=== PATIENT | female | born 1955 | race Caucasian/White ===

== ENCOUNTER → 2020-05-09 10:53 | Outpatient (CLI) | payer MEDICARE, OTHER, SELFPAY ==
--- NOTE | ~2020-05-09 | XR_ITS ---
EXAMINATION: XR lumbar spine min 4V EXAM DATE: 05/09/2020 11:59 INDICATION: Low back pain. TECHNIQUE: Lumber spine frontal, lateral, bilateral oblique projections. Coned down frontal and lat eral L5-S1 lumbar projections for interpretation. There is no prior study for comparison. FINDINGS: There is mild lumbar levoscoliosis. There is moderate loss of the L5-S1 disc height. Mild d isc disease at the other lumbar levels. There is moderate lumbar facet arthropathy. The vertebral bod ies are aligned in the AP dimension. Sacrum, sacroiliac joints, sacral arcuate lines are intact. P araspinal soft tissue is unremarkable. There are no acute fractures identified. IMPRESSION: Moderate facet arthropathy and L5-S1 disc disease. Reviewed, dictated and finalized at location A. ARE CASE WORKER
--- NOTE | ~2020-05-09 | DEXA_ITS ---
Bone Density Report Name: Hayley Arora Age: 65 Sex: Female Ethnicity: White Date of : 1955 Indication: monitoring treatment; hysterectomy; postmenopausal Referring Provider: KATY GONCALVES Study: Bone densitometry was performed. Exam Date: May 09, 2020 Accession number: [id number] Bone Density: Region BMD T-score Z-score Classification AP Spine (L1, L2) 1.081 0.9 2.6 Normal Femoral Neck (Left) 0.921 0.6 2.2 Normal Total Hip (Left) 1.034 0.8 2.0 Normal Femoral Neck (Right) 0.824 -0.2 1.3 Normal Total Hip (Right) 0.989 0.4 1.6 Normal Total Hip Mean 1.012 0.6 1.8 Normal World Health Organization criteria for BMD impression classify patients as: Normal (T-score at or above -1.0), Osteopenia (T-score between -1.0 and -2.5), or Osteoporosis (T-score at or below -2.5). 10-year Fracture Risk: FRAX not reported because: All T-scores for Spine Total, Hip Total, Femoral Neck at or above -1.0 Treated for osteoporosis Previous Exams: Region Exam Age BMD T-score BMD Change BMD Change Date g/cm2 vs Baseline vs Previous AP Spine(L1, L2) 05/09/2020 65 1.081 0.9 0.053* 0.053* 09/04/2004 49 1.027 0.4 Total Hip(Left) 05/09/2020 65 1.034 0.8 -0.084* -0.084* 09/04/2004 49 1.119 1.4 Total Hip(Right) 05/09/2020 65 0.989 0.4 0.006 0.006 09/04/2004 49 0.983 0.3 *Denotes significance at 95% confidence level, LSC for AP Spine = 0.022 g/cm2, LSC for Total Hip = 0.027 g/cm2 Clinical Information Provided by Patient: Has 3 or more alcoholic drinks per day Is being treated for osteoporosis Has used the following medications: HRT (i.e. estrogen/hormone therapy) Has the following medical conditions: Hysterectomy Patient maximum height was 64.0 Menopause Age: 35 No regular weight bearing exercise Drinks caffeinated beverages Onset of menses at age 10 Number of children 2 Impression: The patient has normal bone mass. The patient has risk factors, including: excessive alcohol use. The BMD for the Total Hip(Left) decreased, changing by -0.084 since the last DXA exam. Discussion: SIGNIFICANT BONE LOSS OBSERVED. Adherence to therapy (including calcium and vitamin D intake) should be assessed. If compliance is not a factor, review management and exclusion of secondary causes of bone loss. It is important to ask patients whether they are taking their medications and to encourage cont
== END ==
PROVIDERS: PCP Family Medicine; Visit Provider Family Medicine
DX: Z78.0 Asymptomatic menopausal state (principal); M47.817 Spondylosis without myelopathy or radiculopathy, lumbosacral region; M51.87 Other intervertebral disc disorders, lumbosacral region
CPT/HCPCS: 72110; 77080

== ENCOUNTER 2020-05-21 12:51 | Outpatient (RCR) | payer MEDICARE, OTHER, SELFPAY ==
--- NOTE | 2020-06-04 11:12 | PTOPEVAL ---
Thank you for referring Hayley Arora to [facility].? The patient is scheduled to be seen for therapy? __3__x/week for 12 visits. Please review, sign, date and return this plan of care LAURO. I agree with and certify that the following plan of care is medically necessary. Referring Physician Date Admitting Provider: Attending Provider: Elijah Holloway MD Referring Provider: *PT Outpatient Evaluation Start: 05/21/20 13:01 Freq: Status: Active Protocol: Document 05/21/20 13:01 ANDREW (Rec: 05/21/20 14:07 ANDREW [id number]) Therapy Assessment Status Assessment Status Assessment Status Evaluation Evaluation Information Problem Diagnosis low back pain Onset 05/14/20 Subjective Information Pt. reports that she has Query Text:As Reported By Patient/ noticed a recent gradual onset Family of pain. She describes pain in the left low back and radiates down into the buttock and hamstring. She will get occassional pain radiating into the left calf. She reports that pain will make it difficult to get out of bed in the morning. She reports that once she gets moving she will feel better. Pt. has undergone xray which revealed disc wear at L5-S1. Pt. reports her goal for therpay is to decrease her pain. Prior Level of Function Activity Level (Last 3 Months) Occupation retired Hand Dominance Right Activity of Daily Living Ability Independent Indoor/Home Mobility Independent Community Mobility Independent Stairs Ability Independent Functional Cognition (Planning, Shopping Independent , Taking Medications) Cooking Yes Cleaning Yes Laundry Yes Shopping Yes Driving Yes Pain Assessment Timing of Pain Assessment Timing of Pain Assessment Pre-Treatment Pain Scale Pain Scale Used Numeric (1 - 10) Self Report Pain Assessment Lower Back Reported Pain Level 0 Pain Frequency Intermittent Lowest Pain Intensity 0 Greatest Pain Intensity 5 Pain Aggravating Factors Exercise/Activity,Lifting, Weight Bearing/Standing Pain Score Pain Score 0: Self Re
== END 2020-06-28 09:20 | disposition home or self-care (01) ==
LOC: CHSPT 12:51
PROVIDERS: PCP Family Medicine; Visit Provider Family Medicine
DX: M54.16 Radiculopathy, lumbar region (principal)
CPT/HCPCS: 97110; 97161; 97530

== ENCOUNTER 2020-06-07 12:31 | Outpatient (CLI) | payer MEDICARE, OTHER, SELFPAY ==
--- NOTE | ~2020-06-07 | XR_ITS ---
XR hip LT min 2V DATE: 06/07/2020 12:49 INDICATION: Left hip pain for years. Limited range of motion. TECHNIQUE: AP and lateral views of left hip COMPARISON: None FINDINGS: There is severe left hip joint space narrowing and prominent degenerative spurring, consist ent with severe left hip osteoarthritis. No fracture or dislocation, avascular necrosis or bone destruction is evident. The pubic symphysis and left sacroiliac joint are intact. There is prominent degenerative disc diseas e at L5-S1. IMPRESSION: Severe left hip osteoarthritis Degenerative disc disease at L5-S1 Reviewed, dictated and finalized at location B. L FRONT DESK AGENT
== END 2020-06-07 12:32 | disposition home or self-care (01) ==
PROVIDERS: PCP Family Medicine; Visit Provider Family Medicine
DX: M25.552 Pain in left hip (principal); M16.12 Unilateral primary osteoarthritis, left hip
CPT/HCPCS: 73502

== ENCOUNTER 2020-08-21 07:58 | Outpatient (CLI) | payer MEDICARE, OTHER, SELFPAY ==
--- NOTE | 2020-08-21 08:46 | ECG_ITS ---
Measurements Intervals [place] Rate: 72 P: 78 IN: 159 QRS: 19 QRSD: 86 T: -25 QT: 399 QTc: 438 Interpretive Statements SINUS RHYTHM POSSIBLE LEFT ATRIAL ENLARGEMENT INCOMPLETE RIGHT BUNDLE BRANCH BLOCK DELAYED PRECORDIAL R/S TRANSITION BORDERLINE ST-T WAVE ABNORMALITY- INF/LAT LEADS BASELINE ARTIFACT- I, II, III, AVR, AVL, AVF, V3 BORDERLINE ECG Electronically Signed On 08-21-2020 9:03:23 CDT by Adonis Currie D.O.
[2020-08-21 09:09] LABS: Basophils Absolute Auto 0.1 K/mm3 (0.0-0.1); Eosinophils Absolute Auto 0.3 K/mm3 (0-0.3); Eosinophils Percent Auto 4.1 % (0-4.4); Hematocrit 36.8 % (37.0-47.0); Hemoglobin 12.6 g/dL (12.0-15.0); Immature Granulocyte Absolute 0.02 K/mm3 (0.00-0.031); Immature Granulocyte Percent A 0.3 % (0-0.5); Lymphocytes Absolute Auto 1.57 K/mm3 (0.9-3.2); Mean Corpuscular HGB Conc 34.2 g/dl (32-36); Mean Corpuscular Hemoglobin 32.8 pg (26-34); Mean Corpuscular Volume 95.8 fl (80-100); Mean Platelet Volume 10.3 fl (7.4-10.4); Monocytes Absolute Auto 0.5 K/mm3 (0.1-0.6); Monocytes Percent Auto 7.6 % (2.6-8.5); Neutrophils Absolute Auto 3.7 K/mm3 (1.3-6.7); Platelet Count Result 186 k/mm3 (150-375); Red Blood Count 3.84 M/mm3 (4.2-5.4); Red Cell Distribution Width 12.4 % (11.5-14.5); White Blood Count 6.1 K/mm3 (4.5-10.0)
[2020-08-21 09:19] LABS: INR 0.9; Prothrombin Time 12.4 Seconds (11.1-14.7)
[2020-08-21 09:20] LABS: Partial Thromboplastin Time 26.7 SECONDS (22.3-36.8)
[2020-08-21 09:21] LABS: Urine Cotinine NEGATIVE
[2020-08-21 09:23] LABS: Add Urine Microscopic? YES; Appearance Urine Cloudy (Clear); Bilirubin Urine Negative (Negative); Blood Urine Negative (Negative); Color Urine Yellow (Yellow); Glucose Urine UA Negative (Negative); Ketones Urine Negative (Negative); Leukocyte Esterase Ur Negative LEU/UL (Negative); Mucus Urine Few /lpf; Nitrate Urine Negative (Negative); Protein Urine 2+ mg/dL (Negative); Specific Grav Ur 1.016 (1.001-1.035); Squamous Epithelial Cell Urine Many /hpf (Few); Urobilinogen Urine Negative mg/dL (<2.0); WBC Urine 0-3 /hpf
[2020-08-21 09:23] LABS: Albumin Level 4.9 g/dL (3.5-5.1); Blood Urea Nitrogen 11 mg/dL (7-17); Calcium 10.4 mg/dL (8.4-10.2); Carbon Dioxide > 40 mmol/L (22-30); Chloride 94 mmol/L (98-107); Estimated Glomerular Filt Rate > 60; Glucose 125 mg/dL (65-105); Sodium 140 mmol/L (137-145)
== END 2020-08-21 07:59 | disposition home or self-care (01) ==
LOC: ANHSURGERY 08:02
PROVIDERS: PCP Family Medicine; Visit Provider Orthopaedic Surgery
DX: Z01.818 Encounter for other preprocedural examination (principal); M16.12 Unilateral primary osteoarthritis, left hip; I45.10 Unspecified right bundle-branch block; Z51.81 Encounter for therapeutic drug level monitoring; Z79.899 Other long term (current) drug therapy
CPT/HCPCS: 80048; 80307; 81001; 82040; 83036; 85025; 85610; 85730; 87081; 93005

== ENCOUNTER → 2020-08-31 00:46 | Outpatient (CLI) | payer MEDICARE, OTHER, SELFPAY ==
[2020-08-31 23:32] LABS: SARS-CoV-2 RNA PCR Negative
== END ==
PROVIDERS: PCP Family Medicine; Visit Provider Orthopaedic Surgery
DX: Z01.812 Encounter for preprocedural laboratory examination (principal); Z20.822 Contact with and (suspected) exposure to COVID-19
CPT/HCPCS: C9803; U0003; U0005

== ENCOUNTER 2020-09-05 18:51 | Observation (INO) | payer MEDICARE, OTHER, SELFPAY ==
[2020-08-21 08:06] VITALS: BMI 22.1
[2020-08-21 08:43] VITALS: BP 141/76; PULSE 91; RESP 16; TEMP 37.3; O2SAT 100
--- NOTE | 2020-09-03 13:16 | WPDANESEPPF ---
Anes - Initial Pre Proc Eval Procedure: Operation Date: 09/04/20 07:30 Proposed Procedures p Left Total Hip Arthroplasty - Marcello Ellis MD Date/Time: 09/03/20 13:16 Surgeon: Marcello Ellis MD Pre Op Diagnosis: Left Hip DJD Patient Data Age: 65 Gender: F Height: 5 ft 4 in Weight: 58.6 kg Last Vital Signs Temp 99.1 F 08/21/20 08:43 Pulse 91 08/21/20 08:43 Resp 16 08/21/20 08:43 BP 141/76 H 08/21/20 08:43 Pulse Ox 100 08/21/20 08:43 Allergies Allergy/AdvReac Type Severity Reaction Status Date / Time No Known Allergies Allergy Verified 09/04/20 06:10 Home Medications Medication Instructions Recorded Confirmed Type calcium carbonate 600 mg calcium 600 mg PO DAILY 07/02/20 09/04/20 History (1,500 mg) tablet cholecalciferol (vitamin D3) 100 400 mcg PO DAILY cap 07/02/20 09/04/20 History mcg (4,000 unit) capsule estradiol 0.5 mg tablet 0.5 mg PO DAILY 07/02/20 09/04/20 History acetaminophen 650 mg PO PRN PRN 08/21/20 09/04/20 History amlodipine 10 mg PO HS 08/21/20 09/04/20 History losartan 100 mg PO HS 08/21/20 09/04/20 History metoprolol succinate 50 mg PO HS 08/21/20 09/04/20 History potassium chloride 10 meq PO DAILY 08/21/20 09/04/20 History chlorhexidine gluconate 4 % 1 applic TOPICAL ONCE #237 ml 08/26/20 09/04/20 Rx topical liquid Patient hx anesthesia problems: none Family hx anesthesia problems: none PMFSH Past Medical History Medical History (Updated 09/03/20 @ 13:16 by Mauro Blood MD) Degenerative joint disease of left hip Hypertension Surgical History Surgical History H/O: hysterectomy Social History Social History Smoking packs per day: 0.75 Smoking cigarettes per day: 15.0 Years smoked: 15 Smoking pack-years: 11.25 Smoking status: Former smoker Tobacco type: cigarettes Second hand tobacco smoke exposure: No Smoking end date: 04/15/00 Additional smoking assessment comments: DENIES ANY FORM OF TOBACCO USE Alcohol intake: current Drinks per week: 56 Alcohol use details: BEER Substance use: never Substance use type: marijuana Last use: 08/20/20 Living arrangements: with family Gender identity (if verbalized by the patient): Female Spiritual care concerns: No Anes - Eval Final PreProcedure Day of Procedure 09/03/20 13:16 Patient weight: normal Heart: regular rate and rhythm Lungs: clear to auscultation Airway: Mallampati scale class II Neurological: alert and oriented Last oral intake: >/= 8 hours ASA classification: III Emergent: no Anesthetic plan: proceed Anesthesia type and monitoring: general ETT and standard monitoring Informed Consent: The patient's anesthetic plan and its attendant risks and benefits were discussed with the patient/family/POA. Questions were solicited and answers provided to the satisfaction of the patient/family/POA.
[2020-09-04] VITALS (14 sets, daily range): BP systolic 113–145; BP diastolic 57–75; PULSE 63–84; RESP 12–21; TEMP 35.9–37.1; O2SAT 100
[2020-09-04] MEDS: ACETAMINOPHEN 500 MG TABLET 1000 MG PO ×2 (06:33→17:35)
[2020-09-04] MEDS: LACTATED RINGERS 1,000 ML 30 ML IV CONT ×3 (06:40→10:30)
[2020-09-04] MEDS: TRANEXAMIC ACID 1,000MG/ISO100 1,000 MG/100 ML BAG 200 MG IVPB (06:49)
[2020-09-04 07:12] LABS: Glucose Point of Care 100 mg/dl (65-105)
--- NOTE | 2020-09-04 07:22 | WPDHPUPDATE1 ---
History and Physical Update Update Date/Time: 09/04/20 07:22 History and Physical has been reviewed, including an updated exam of the patient. There are NO changes in the patient's condition. Risks, benefits, and alternatives have been discussed and questions answered. Patient agrees to proceed with procedure.
[2020-09-04] MEDS: ceFAZolin 2 GM/D5W 50 ML 2 GM/50 ML BAG IVPB ×2 (07:35→16:41)
--- NOTE | 2020-09-04 07:37 | SUR.PREOP ---
07-SUMMONED TO ROOM BY , STATES PT IS OUT . UPON ARRIVAL TO ROOM, PT NOT RESPONDING, BREATHING ORALLY WITH SLOWED EXHALATION, RADIAL PULSE STRONG, PT DIAPHORETIC. ADDITIONAL STAFF SUMMONED INCUDING DR. MIKE AND RESPONDED. IVF INCREASED TO WIDE OPEN. WITHIN APPROXIMATELY 1 MINUTE OR LESS, PT RESPONSIVE, STATES PASSED OUT AND FEELS FINE NOW. PT. EXAMINED BY DR. MIKE. [id number]. SULLIVAN HERE AND AWARE OF ABOVE, WILL PROCEED. DR. BLUE AND ANGEL, RN CHEMICAL ENGRAVER AWARE OF ABOVE.
[2020-09-04] MEDS: TRANEXAMIC ACID 1,000 MG/10 ML AMPUL 1000 MG IV PUSH (09:27)
--- NOTE | 2020-09-04 09:39 | PM.PROC ---
Procedure Note - Detailed Date of procedure: 09/04/20 Pre-op diagnosis: Left Hip DJD LEFT HIP DJD Post-op diagnosis: same Procedure performed: LEFT ELVIRA Description of procedure: THE PATIENT WAS TAKEN TO THE OPERATING ROOM IN STABLE CONDITION. SHE WAS PLACED IN THE LATERAL DECUBITUS AND THE LEFT LOWER EXTREMITY WAS PREPPED AND DRAPED IN THE STERILE FASHION. INCISION WAS MADE IN THE POSTERIOR LATERAL SIDE OF THE HIP, DOWN TO THE FASCIA LAYER. THE FASCIA WAS INCISED. THE HIP WAS EXPOSED. THE SHORT EXTERNAL ROTATORS WERE EXPOSED AND THE SCIATIC NERVE WAS VISUALIZED. THE CAPSULE WAS INCISED EXPOSING THE HIP JOINT. THE HIP WAS DISLOCATED. AN OSTEOTOMY WAS MADE TO THE FEMORAL NECK ABOUT 1 CM PROXIMAL TO THE LESSER TROCHANTER. THE ACETABULUM WAS EXPOSED. THERE WAS SEVERE DJD SEEN. THE ACETABULUM WAS REAMED TO 49 MM. A 49 MM TRIAL WAS PLACED IN 35 DEG OF ABDUCTION AND ANTEVERSION WAS IN ALIGNMENT WITH THE TRANS ACETABULAR LIGAMENT. THE FIT WAS EXCELLENT. THE TRIAL WAS REMOVED. A 50 MM BIOMET G7 COMPONENT WAS THEN TAPPED IN TO PLACE IN 35 DEG OF ABDUCTION AND ANTEVERSION IN ALIGNMENT WITH THE TRANSVERSE ACETABULAR LIGAMENT. THE ACETABULAR LINER WAS PLACED AND CHECKED FOR STABILITY. NEXT THE FEMUR WAS PREPARED WITH INITIAL CANAL FINDER THEN SEQUENTIAL BROACHING TILL A 7 BROACH FIT WELL IN 15 OF ANTE VERSION. A 0 HIGH OFFSET NECK WITH 36 MM HEAD TRIAL WAS PLACED. THE RUPERTO TEST WAS EXCELLENT AND THE STABILITY IN FLEXION AND ROTATION WAS EXCELLENT. LEG LENGTHS WERE GROSSLY EQUAL. TRIALS WERE REMOVED. A BIOMET TAPERLOC 7 STEM WAS PLACED WITH A HIGH OFFSET NECK. THE FIT WAS EXCELLENT IN 15 DEG OF ANTEVERSION. A 0 CERAMIC 36 MM FEMORAL HEAD WAS PLACED. THE HIP WAS TRIALED AND THE STABILITY WAS EXCELLENT WERE THE LEG LENGTHS AND THE SCHUK TEST. THE WOUND WAS IRRIGATED WITH STERILE BETADINE AND WATER FOR 3 MIN. THEN WASHED AGAIN. THE CAPSULE AND THE EXTERNAL ROTATORS WERE APPROXIMATED WITH NUMBER 1 VICRYL. THE FASCIA WITH No 2 QUIL AND THE SUB CUTANEOUS LAYER WITH 2-0 ABSORBABLE SUTURE WITH A RUNNING 3-0 SUBCUTICULAR LAYER WELL. DERMABOND WAS PLACED AND STERILE DRESSING WAS APPLIED. PATIENT WAS PLACED BACK ON TO THE SUPINE POSITION AND WAS EXTUBATED. Anesthesia: GETA Surgeon: Marcello Ellis MD Estimated blood loss (mL): 150 Drains: No Complications: No immediate complications Condition: stable Disposition: PACU
[2020-09-04] MEDS: fentaNYL CITRATE INJ (*CRX) 100 MCG/2 ML VIAL 25 MCG IV PUSH ×6 (10:10→10:55)
--- NOTE | 2020-09-04 10:58 | SUR.PHASEI ---
1050 sbar faxed floor notified
--- NOTE | 2020-09-04 11:15 | ADMGEN ---
This patient, Hayley Arora, was admitted to Medical Room 258-01. Patient/family oriented to hospital policies and general routines including ID bracelet, bed and alarms, visiting hours, pain management, procedures, bathroom and other care routines, personal items, smoking policy, room service/diet, and visiting hours. Information on how to activate the Rapid Response Team has been discussed. Patient/Family are encouraged to report perceived risks to care and to ask questions if they do not understand what they are told or what they should do.
[2020-09-04 11:50] LABS: Hematocrit 32.5 % (37.0-47.0); Hemoglobin 11.3 g/dL (12.0-15.0)
[2020-09-04] MEDS: amLODIPine BESYLATE 5 MG TABLET 10 MG PO (20:16)
[2020-09-04] MEDS: LOSARTAN POTASSIUM 100 MG TABLET PO (20:17)
[2020-09-04] MEDS: FAMOTIDINE 20 MG TABLET PO (20:17)
[2020-09-04] MEDS: METOPROLOL SUCCINATE EXT REL 50 MG TABCR PO (20:17)
--- NOTE | ~2020-09-05 | XR_ITS ---
XR hip LT 1V DATE: 09/04/2020 10:50 INDICATION: Left total hip TECHNIQUE: Postoperative AP view of left hip COMPARISON: 08/26/2020 left hip FINDINGS: Status post left total hip arthroplasty. Mild expected postoperative subcutaneous emphysema . No fracture or dislocation. Normal alignment at the pubic symphysis and sacroiliac joints. Diffuse osteopenia. IMPRESSION: Postoperative examination following left total hip arthroplasty Reviewed, dictated and finalized at location B.
[2020-09-05] MEDS: ceFAZolin 2 GM/D5W 50 ML 2 GM/50 ML BAG IVPB ×2 (00:20→06:39)
[2020-09-05 00:56] VITALS: BP 141/79; PULSE 85; RESP 20; TEMP 36.4; O2SAT 98
[2020-09-05] MEDS: MORPHINE SULFATE (*CRX) 4 MG/ML INJ 3 MG IV PUSH (01:00)
[2020-09-05 05:42] LABS: Basophils Percent Auto 0.3 % (0.2-1.2); Hematocrit 30.6 % (37.0-47.0); Hemoglobin 10.6 g/dL (12.0-15.0); Immature Granulocyte Absolute 0.02 K/mm3 (0.00-0.031); Immature Granulocyte Percent A 0.2 % (0-0.5); Lymphocytes Absolute Auto 1.32 K/mm3 (0.9-3.2); Lymphocytes Percent Auto 15.4 % (18.3-44.2); Mean Corpuscular HGB Conc 34.6 g/dl (32-36); Mean Corpuscular Hemoglobin 32.9 pg (26-34); Mean Platelet Volume 10.6 fl (7.4-10.4); Monocytes Absolute Auto 0.8 K/mm3 (0.1-0.6); Monocytes Percent Auto 9.5 % (2.6-8.5); Neutrophils Absolute Auto 6.4 K/mm3 (1.3-6.7); Neutrophils Percent Auto 74.6 % (45.5-73.1); Platelet Count Result 156 k/mm3 (150-375); Red Blood Count 3.22 M/mm3 (4.2-5.4); White Blood Count 8.6 K/mm3 (4.5-10.0)
[2020-09-05 06:00] VITALS: BP 147/82; PULSE 76; RESP 21; TEMP 36.2; O2SAT 100
[2020-09-05 06:03] LABS: Blood Urea Nitrogen 7 mg/dL (7-17); Carbon Dioxide > 40 mmol/L (22-30); Chloride 94 mmol/L (98-107); Estimated CRCL calculation 69 ml/min; Estimated Glomerular Filt Rate > 60; Glucose 127 mg/dL (65-105); Potassium 2.5 mmol/L (3.4-5.0); Sodium 134 mmol/L (137-145)
[2020-09-05] MEDS: HYDROcodone/acetaminophen (*CRX) 7.5-325 MG TABLET 1 TAB PO ×2 (06:28→12:00)
[2020-09-05] MEDS: POTASSIUM CHLORIDE 10 MEQ TABLET.ER PO (06:35)
[2020-09-05] MEDS: FAMOTIDINE 20 MG TABLET PO ×2 (08:17→20:14)
[2020-09-05] MEDS: CELECOXIB 200 MG CAPSULE PO (08:17)
[2020-09-05] MEDS: CALCIUM CARBONATE (OSCAL) 500 MG TABLET PO (08:17)
[2020-09-05] MEDS: ASPIRIN 325 MG ENTERIC TABLET 650 MG PO (08:17)
[2020-09-05] MEDS: DOCUSATE SODIUM 100 MG CAPSULE PO ×2 (08:17→17:28)
--- NOTE | 2020-09-05 09:05 | PM.PNORT ---
Progress Note: A&P Assessment and Plan (1) S/P total hip arthroplasty: Qualifiers: Laterality: left Qualified Code(s): Z96.642 - Presence of left artificial hip joint Code(s): Z96.649 - Presence of unspecified artificial hip joint Status: Acute Assessment and Plan: POD #1: LEFT ELVIRA Continue PT/OT. WBAT. Walker. HIGH FALL RISK. Continue pain control. Ice lateral hip. Incentive spirometry. SCDs. DVT prophylaxis. Monitor dressing. Change prior to discharge. Dispo: Home with Home Health pending progress with PT/OT and medical clearance. (2) Hypokalemia: Code(s): E87.6 - Hypokalemia Status: Acute Assessment and Plan: Potassium chloride started. Medicine consulted by Dr. Ellis. Subjective Subjective Date/Time Seen: 09/05/20 09:05 POD #1: Left ELVIRA No new complaints. Doing well this AM. Awaiting PT. Pain well controlled. Review of Systems Constitutional: Constitutional: Denies chills, Denies fatigue, Denies fever(s), Denies night sweats and Denies weakness Cardiovascular: Cardiovascular: Denies chest pain, Denies lightheadedness, Denies palpitations and Denies dyspnea Respiratory: Respiratory: Denies cough, Denies dyspnea and Denies wheezing Gastrointestinal: Gastrointestinal: Denies abdominal pain, Denies diarrhea, Denies nausea and Denies vomiting Musculoskeletal: Musculoskeletal: Reports arthralgias (left hip ), Reports joint swelling (left hip ) and Denies numbness Neurologic: Denies numbness and Denies weakness Endocrine: Endocrine: Denies fatigue and Denies palpitations Allergic/Immunologic: Allergic/Immunologic: Denies wheezing Exam Const: General: comfortable and no acute distress Resp: Effort & Inspection: normal respiratory effort Cardio: Rate: regular rate Rhythm: regular rhythm GI: Inspection: non-distended Skin: General skin exam: normal color Wounds: wounds noted (incision left hip C/D/I ) Extrem: Right lower extremity: normal to inspection, full ROM and normal capillary refill Left lower extremity: hip/thigh Details: tenderness Location: of the hip Location: laterally and anteriorly, swelling (thigh soft ) Location: of the hip (lateral. ), abnormal ROM (limitations with internal/external rotation and flexion/extension due to recent surgical intervention ) and other (incision lateral hip c/d/i. ), knee Details: normal to inspection and normal ROM; no tenderness and no swelling, lower leg (Negative Deepika's Sign ) Details: no edema, ankle (+ankle dorsiflexion/plantarflexion ) Details: normal to inspection, no edema and normal ROM; no tenderness, no swelling and no warmth and foot Details: normal capillary refill, toes with normal ROM, vascular exam Details: dorsalis pedis pulse present and motor-sensory exam light-touch normal in all toes; no tenderness, no ecchymosis and no crepitus Psych: Mental Status: mental status grossly normal Affect: normal affect Objective Data Vital Signs Vital Signs: Vital Signs - 24 hr 09/04/20 10:00 09/04/20 10:15 09/04/20 10:30 Temperature 36.6 C Pulse Rate 76 76 72 Respiratory Rate 12 16 15 Blood Pressure 113/66 128/71 140/75 Pulse Oximetry 100 100 100 09/04/20 10:45 09/04/20 11:00 09/04/20 11:11 Temperature 36.1 C L Pulse Rate 78 79 78 Respiratory Rate 20 20 16 Blood Pressure 136/72 131/70 145/74 H Pulse Oximetry 100 100 100 09/04/20 11:26 09/04/20 11:56 09/04/20 12:56 Temperature 36.0 C L 36.0 C L 35.9 C L Pulse Rate 63 67 72 Respiratory Rate 16 16 16 Blood Pressure 136/69 134/68 130/64 Pulse Oximetry 100 100 100 09/04/20 14:00 09/04/20 20:00 09/04/20 20:17 Temperature 36.1 C L Pulse Rate 74 84 84 Respiratory Rate 16 16 Blood Pressure 121/57 L Pulse Oximetry 100 100 09/04/20 22:00 09/05/20 00:56 09/05/20 06:00 Temperature 37.1 C 36.4 C 36.2 C L Pulse Rate 82 85 76 Respiratory Rate 21 H 20 21 H Blood Pressure 116/63 141/79 H 147/82 H Pulse Oximetry 100
[2020-09-05 10:00] VITALS: BP 114/65; PULSE 84; RESP 16; TEMP 36.6; O2SAT 95
[2020-09-05] MEDS: POTASSIUM CHLORIDE 20 MEQ PACKET (FOR LIQUID) 40 MEQ PO (11:59)
[2020-09-05 12:08] LABS: Magnesium 1.5 mg/dL (1.6-2.3)
--- NOTE | 2020-09-05 13:13 | PM.IMCN ---
Assessment and Plan Assessment and plan (1) S/P total hip arthroplasty: Qualifiers: Laterality: left Qualified Code(s): Z96.642 - Presence of left artificial hip joint Code(s): Z96.649 - Presence of unspecified artificial hip joint Status: Acute Assessment and Plan: Postop care per Dr. Ellis. The patient is anticipating discharge. She appears to be doing fairly well and is dressed and stated that she wants to go home today. Postop care per Dr. Ellis. DVT prophylaxis per Dr. Ellis. PT OT per Dr. Ellis. Pain management per Dr. Ellis. (2) Hypomagnesemia: Code(s): E83.42 - Hypomagnesemia Status: Acute Assessment and Plan: Patient's magnesium was supplemented today. (3) Hypokalemia: Code(s): E87.6 - Hypokalemia Status: Acute Assessment and Plan: Patient stated that her potassium is always chronically low. She is currently on oral potassium. She is not on any diuretics. Today her potassium was 2.5. Her previous potassium was 3.0. I will recheck her potassium level again in a couple hours to see if it is at her baseline. (4) Hypertension: Code(s): I10 - Essential (primary) hypertension Status: Acute Assessment and Plan: Continue with her home medication of losartan and metoprolol if blood pressure allows. HPI Data of Consult Consult date: 09/05/20 Requesting Physician: Marcello Ellis MD Primary Care Provider: Elijah Holloway MD Consult Narrative Narrative: Hayley Arora is a 65 year old female who has a history of degenerative disc disease in her back. The patient was seeing her primary care doctor for lower back pain and discovered that she was also having problems with her left hip. She was diagnosed with severe osteoarthritis to that left hip. She tells me that she continue to be active and thought that her pain was coming from her back. She had been going to physical therapy for lower back pain when she discovered that she was having problems with her left hip. The patient was having difficulty going up stairs. The patient elected to undergo a left total hip replacement yesterday per Dr. Ellis. Other than the site being slightly swollen she does not have any complaints today. Her potassium was found to be 2.5 which was replaced today by the hospitalist group. The patient is anticipating going home soon. She stated that she typically takes a potassium supplement and that it is typically low. Prior to today her potassium was 3.0. The hospitalist group has been asked to consult on this pleasant patient due to low potassium. Date of consult is 09/05/2020. The patient is listed as a regular same-day surgery. Review of Systems Review of Systems: All systems reviewed & are unremarkable except as noted in HPI and below Constitutional: Constitutional: Reports as per HPI and Reports no additional constitutional complaints Eyes: Eyes: Reports as per HPI and Reports no additional eye complaints ENT: Reports system reviewed and no additional complaints, except as documented and Reports Normal hearing present Cardiovascular: Cardiovascular: Reports no additional cardiovascular complaints Respiratory: Respiratory: Reports no additional respiratory complaints and Reports no additional respiratory complaints Gastrointestinal: Gastrointestinal: Reports as per HPI and Reports no additional gastrointestinal complaints Musculoskeletal: Musculoskeletal: Reports no additional musculoskeletal complaints Integumentary/Breasts: Skin/Breast: Reports system reviewed and no additional complaints, except as docu and Reports as per HPI Neurologic: Reports system reviewed and no additional complaints, except as documented, Reports as per HPI and Reports Normal hearing present Psychiatric: Psychiatric: Reports no additional psychiatric complaints and Reports as per HPI Endocrine: Endocrine: Reports no additional endocrine complaints
--- NOTE | 2020-09-05 13:35 | WPDANESPN ---
Anes - Prog Note Post-Op Date/Time: 09/05/20 13:35 Cardiovascular status: normal Respiratory status: normal Airway patency: baseline Mental status: baseline Post-Op hydration status: normal Vital Signs: Last Vital Signs Temp 36.6 C 09/05/20 10:00 Pulse 84 09/05/20 10:00 Resp 16 09/05/20 10:00 BP 114/65 09/05/20 10:00 Pulse Ox 95 09/05/20 10:00 Pain Score (VAS): 0 I/O: Intake & Output 09/04/20 09/05/20 09/05/20 23:59 07:59 15:59 Intake Total 50 850 480 Output Total 1200 1200 Balance -1150 -350 480 Laboratory Tests 09/05/20 05:20 09/05/20 05:20 09/05/20 09/05/20 09/05/20 05:20 05:20 11:38 WBC 8.6 RBC 3.22 L Hgb 10.6 L Hct 30.6 L MCV 95.0 MCH 32.9 MCHC 34.6 RDW 12.0 Plt Count 156 MPV 10.6 H Immature Gran % (Auto) 0.2 Neut % (Auto) 74.6 H Lymph % (Auto) 15.4 L [place] % (Auto) 9.5 H Eos % (Auto) 0.0 Baso % (Auto) 0.3 Lymph # (Auto) 1.32 [place] # (Auto) 0.8 H Eos # (Auto) 0.0 Baso # (Auto) 0.0 Abs Immat Gran (auto) 0.02 Absolute Neuts (auto) 6.4 Absolute Nucleated RBC 0.0 Nucleated RBC % 0.0 Sodium 134 L Potassium 2.5 L* Chloride 94 L Carbon Dioxide > 40 H Anion Gap BUN 7 Creatinine 0.60 L Estim Creat Clear Calc 69 Estimated GFR > 60 Glucose 127 H Calcium 9.0 Magnesium 1.5 L Post-procedural complaints: none Patient Feedback: Patient satisfied with anesthetic care.
[2020-09-05] MEDS: MAGNESIUM SULF 2 GM/WATER 50ML 2 GM/50 ML BAG IVPB (13:46)
[2020-09-05] MEDS: POTASSIUM CHLORIDE 20 MEQ PACKET (FOR LIQUID) PO (13:46)
[2020-09-05 16:29] LABS: Anion Gap 4 mmol/L (8-16); Blood Urea Nitrogen 12 mg/dL (7-17); Calcium 10.5 mg/dL (8.4-10.2); Carbon Dioxide 38 mmol/L (22-30); Chloride 93 mmol/L (98-107); Estimated CRCL calculation 47 ml/min; Estimated Glomerular Filt Rate > 60; Glucose 114 mg/dL (65-105); Potassium 3.9 mmol/L (3.4-5.0); Sodium 135 mmol/L (137-145)
[2020-09-05 20:13] VITALS: PULSE 80
[2020-09-05] MEDS: METOPROLOL SUCCINATE EXT REL 50 MG TABCR PO (20:13)
[2020-09-05] MEDS: amLODIPine BESYLATE 5 MG TABLET 10 MG PO (20:13)
[2020-09-05] MEDS: LOSARTAN POTASSIUM 100 MG TABLET PO (20:14)
[2020-09-05 20:30] VITALS: BP 110/59; PULSE 90; RESP 20; TEMP 36.4; O2SAT 95
[2020-09-06] MEDS: HYDROcodone/acetaminophen (*CRX) 7.5-325 MG TABLET 1 TAB PO (04:30)
[2020-09-06 05:14] VITALS: BP 132/71; PULSE 77; RESP 20; TEMP 36; O2SAT 99
[2020-09-06 07:03] LABS: Anion Gap 2 mmol/L (8-16); Blood Urea Nitrogen 12 mg/dL (7-17); Calcium 9.6 mg/dL (8.4-10.2); Carbon Dioxide 37 mmol/L (22-30); Chloride 97 mmol/L (98-107); Estimated CRCL calculation 69 ml/min; Estimated Glomerular Filt Rate > 60; Glucose 109 mg/dL (65-105); Potassium 3.2 mmol/L (3.4-5.0); Sodium 136 mmol/L (137-145)
[2020-09-06] MEDS: ASPIRIN 325 MG ENTERIC TABLET 650 MG PO (09:17)
[2020-09-06] MEDS: DOCUSATE SODIUM 100 MG CAPSULE PO (09:18)
[2020-09-06] MEDS: CALCIUM CARBONATE (OSCAL) 500 MG TABLET PO (09:18)
[2020-09-06] MEDS: CELECOXIB 200 MG CAPSULE PO (09:18)
[2020-09-06] MEDS: FAMOTIDINE 20 MG TABLET PO (09:18)
[2020-09-06] MEDS: POTASSIUM CHLORIDE 10 MEQ TABLET.ER PO (09:18)
[2020-09-06 09:40] VITALS: O2SAT 95
[2020-09-06] MEDS: POTASSIUM CHLORIDE 20 MEQ TABLET 60 MEQ PO (09:48)
--- NOTE | 2020-09-06 10:39 | PM.PNORT ---
Progress Note: A&P Assessment and Plan (1) S/P total hip arthroplasty: Qualifiers: Laterality: left Qualified Code(s): Z96.642 - Presence of left artificial hip joint Code(s): Z96.649 - Presence of unspecified artificial hip joint Status: Acute Assessment and Plan: POD #2: LEFT ELVIRA Continue PT/OT. WBAT. Walker. HIGH FALL RISK. Continue pain control. Ice lateral hip. Incentive spirometry. SCDs. DVT prophylaxis. Monitor dressing. Change prior to discharge. Dispo: Home with Home Health pending progress with PT/OT and medical clearance. (2) Hypokalemia: Code(s): E87.6 - Hypokalemia Status: Acute Assessment and Plan: Potassium 3.2 today. Awaiting hospitalist recommendations. Patient on potassium supplements at home due to chronic low potassium for the last 2-3 months. Monitoring by PCP. Subjective Subjective Date/Time Seen: 09/06/20 0915 POD #2: Left ELVIRA No new complaints. Doing well this AM. Awaiting PT. Pain well controlled. Low potassium again today. Patient reports this is chronic and she has been on home replacement medication x3 months under direction of PCP. Review of Systems Constitutional: Constitutional: Denies chills, Denies fatigue, Denies fever(s), Denies night sweats and Denies weakness Cardiovascular: Cardiovascular: Denies chest pain, Denies lightheadedness, Denies palpitations and Denies dyspnea Respiratory: Respiratory: Denies cough, Denies dyspnea and Denies wheezing Gastrointestinal: Gastrointestinal: Denies abdominal pain, Denies diarrhea, Denies nausea and Denies vomiting Musculoskeletal: Musculoskeletal: Reports arthralgias (left hip ), Reports joint swelling (left hip ) and Denies numbness Neurologic: Denies numbness and Denies weakness Endocrine: Endocrine: Denies fatigue and Denies palpitations Allergic/Immunologic: Allergic/Immunologic: Denies wheezing Exam Const: General: comfortable and no acute distress Resp: Effort & Inspection: normal respiratory effort Cardio: Rate: regular rate Rhythm: regular rhythm GI: Inspection: non-distended Skin: General skin exam: normal color Wounds: wounds noted (incision left hip C/D/I ) Extrem: Right lower extremity: normal to inspection, full ROM and normal capillary refill Left lower extremity: hip/thigh Details: tenderness Location: of the hip Location: laterally and anteriorly, swelling (thigh soft ) Location: of the hip (lateral. ), abnormal ROM (limitations with internal/external rotation and flexion/extension due to recent surgical intervention ) and other (incision lateral hip c/d/i. ), knee Details: normal to inspection and normal ROM; no tenderness and no swelling, lower leg (Negative Deepika's Sign ) Details: no edema, ankle (+ankle dorsiflexion/plantarflexion ) Details: normal to inspection, no edema and normal ROM; no tenderness, no swelling and no warmth and foot Details: normal capillary refill, toes with normal ROM, vascular exam Details: dorsalis pedis pulse present and motor-sensory exam light-touch normal in all toes; no tenderness, no ecchymosis and no crepitus Psych: Mental Status: mental status grossly normal Affect: normal affect Objective Data Vital Signs Vital Signs: Vital Signs - 24 hr 09/05/20 20:13 09/05/20 20:30 09/06/20 05:14 Temperature 36.4 C 36.0 C L Pulse Rate 80 90 77 Respiratory Rate 20 20 Blood Pressure 110/59 L 132/71 Pulse Oximetry 95 99 09/06/20 09:40 Temperature Pulse Rate Respiratory Rate Blood Pressure Pulse Oximetry 95 Intake/Output Intake/Output: Intake & Output 09/03/20 09/04/20 09/05/20 09/06/20 23:59 23:59 23:59 23:59 Intake Total 900 1930 240 Output Total 1200 2200 600 Balance -300 -270 -360 Meds/Results Medications: Active Medications Generic Name Dose Route Start Last Admin Trade Name Leonidas PRN Reason Stop Dose Admin Acetaminophen 1,000 mg 09/04/20 12:18 09/04/20 17:35 Acetaminophen 500 Mg
[2020-09-06 12:27] LABS: Potassium 3.7 mmol/L (3.4-5.0)
--- NOTE | 2020-09-06 12:33 | PM.IMPN ---
Progress Note: A&P Assessment and Plan (1) S/P total hip arthroplasty: Qualifiers: Laterality: left Qualified Code(s): Z96.642 - Presence of left artificial hip joint Code(s): Z96.649 - Presence of unspecified artificial hip joint Status: Acute Assessment and Plan: Postop care per Dr. Ellis. PT/OT DVT Aspirin 650mg Pain norco, morphine, GI Prophylaxis: Pepcis Bowel Regemine: MOM Colace (2) Hypomagnesemia: Code(s): E83.42 - Hypomagnesemia Status: Acute Assessment and Plan: Mag was 1.5 Supplemented on 09/05/20 (3) Hypokalemia: Code(s): E87.6 - Hypokalemia Status: Acute Assessment and Plan: Potassium was 3.2 today 60 MEQ PO given Redraw Potassium was 3.7 Patient takes 10mEQ PO daily at home which was continued here Trend Potassium Follow up with primary upon discharge (4) Hypertension: Code(s): I10 - Essential (primary) hypertension Status: Acute Assessment and Plan: Current Blood pressure is 132/71 Continue home medication of losartan and metoprolol Trend Blood pressures Subjective Date/time seen: 09/06/20 12:33 Patient is 65-year-old female who was scheduled for a left knee replacement on 09/04/[address] Ellis. patient states that she is doing very well today and is ready to be discharged. Patient also stated that she has chronic problems with her potassium level and she takes 10 meq per day and that this is all managed by her primary care physician. Patient's potassium today was 3.2 she was given 60meq and redraw was done and it was 3.7. patient denies chest pain, shortness of breath, nausea, vomiting, abdominal pain, abnormal swelling, generalized weakness, fatigue, headache, dizziness, lightheadedness, or numbness and tingling. I explained to the patient she can go home per surgery if her potassium was greater than 3.5. I also explained her that she needs to follow-up with her primary care physician about may be increasing her dose of potassium she takes every day patient verbalized understanding and was okay with the plan of care. Thank you for letting us consult on this patient. Review of Systems Review of Systems: All systems reviewed & are unremarkable except as noted in HPI and below Exam Const: General: cooperative, healthy appearing, comfortable, no acute distress, well developed, awake and Physically active Nutritional Appearance: average body habitus and well nourished Orientation/consciousness: oriented to person, oriented to place, oriented to time and patient oriented x3 Limitations: no limitations HENMT: Head: normal to inspection, normocephalic and atraumatic Ears: hearing grossly normal bilaterally and external ears normal General nose exam: Normal external nose present and Normal nares present Eyes: General: appearance normal, both eyes and all related structures Alignment and Position: alignment normal Periorbital: periorbital findings normal Eyelids: eyelids normal Conjunctivae: conjunctivae normal Pupils: Equal, round and reactive pupils present and Pupil accommodation reflex normal EOM: EOMs intact bilaterally Neck: Neck: normal visual inspection Lymphatic: no lymphadenopathy noted Chest: Chest palpation & inspection: normal inspection of the chest Resp: Effort & Inspection: normal respiratory effort Auscultation: clear to auscultation bilaterally Cardio: Rate: regular rate Rhythm: regular rhythm Heart sounds: S1 normal heart sound present and S2 normal heart sound present Peripheral pulses: Peripheral pulses 2+ throughout GI: Inspection: normal to inspection Auscultation: normal bowel sounds Rectal Exam: deferred Skin: General skin exam: normal color Lesions: no lesions Rashes: no rashes Trauma: no lacerations or abrasions Hair: normal Nails: normal Neuro: General: oriented to person, oriented to place, oriented to time and
--- NOTE | 2020-09-06 12:58 | PM.DS ---
DS: Admitting Diagnosis Admitting Diagnosis Admitting Diagnosis: Left total hip arthroplasty DS: Discharge Diagnosis Discharge Diagnosis (1) S/P total hip arthroplasty: Qualifiers: Laterality: left Qualified Code(s): Z96.642 - Presence of left artificial hip joint Code(s): Z96.649 - Presence of unspecified artificial hip joint Status: Acute Assessment and Plan: POD #2: LEFT ELVIRA Continue PT/OT. WBAT. Walker. HIGH FALL RISK. Continue pain control. Ice lateral hip. Incentive spirometry. SCDs. DVT prophylaxis. Monitor dressing. Change prior to discharge. Dispo: Home with Home Health pending progress with PT/OT and medical clearance. (2) Hypokalemia: Code(s): E87.6 - Hypokalemia Status: Acute Assessment and Plan: Potassium 3.2 today. Awaiting hospitalist recommendations. Patient on potassium supplements at home due to chronic low potassium for the last 2-3 months. Monitoring by PCP. DS: Summary Hospital Course Reason for hospitalization: left total hip Hospital Course: 65-year-old female admitted status post left total hip arthroplasty for postoperative medical management, pain control and physical and occupational therapy. She progressed well with PT and OT on postop day 1. She did suffer from some hypokalemia postoperatively. She had potassium replacement and a hospitalist consult for assistance with electrolyte replacement. She did have low potassium again on postop day 2 and was successfully replaced. Her discharge potassium level is 3.7. We will recheck her potassium through home health on Wednesday. Orders have been submitted. The patient reports that she is chronically suffering from hypokalemia followed by her primary care provider for such. She is on daily supplementation as well. Her pain has been well controlled throughout her hospitalization. She has otherwise had unstable hospitalization vital signs remained stable as well. Patient to be discharged home with home health at this time. She has been cleared by formal physical therapy. She will follow up in 3 weeks in the outpatient clinic. Status at Discharge Functional status at discharge: uses cane/walker Overall status at discharge: patient is progressing back to baseline Time Spent with Patient Time attestation: Total time spent providing and/or coordinating discharge services: Exam Const: General: comfortable and no acute distress Resp: Effort & Inspection: normal respiratory effort Cardio: Rate: regular rate Rhythm: regular rhythm GI: Inspection: non-distended Skin: General skin exam: normal color Wounds: wounds noted (incision left hip C/D/I ) Extrem: Right lower extremity: normal to inspection, full ROM and normal capillary refill Left lower extremity: hip/thigh Details: tenderness Location: of the hip Location: laterally and anteriorly, swelling (thigh soft ) Location: of the hip (lateral. ), abnormal ROM (limitations with internal/external rotation and flexion/extension due to recent surgical intervention ) and other (incision lateral hip c/d/i. ), knee Details: normal to inspection and normal ROM; no tenderness and no swelling, lower leg (Negative Deepika's Sign ) Details: no edema, ankle (+ankle dorsiflexion/plantarflexion ) Details: normal to inspection, no edema and normal ROM; no tenderness, no swelling and no warmth and foot Details: normal capillary refill, toes with normal ROM, vascular exam Details: dorsalis pedis pulse present and motor-sensory exam light-touch normal in all toes; no tenderness, no ecchymosis and no crepitus Psych: Mental Status: mental status grossly normal Affect: normal affect DS: Data Data Completed and Pending Labs on day of discharge: Labs from last 24 hours 09/06/20 09/06/20 09/05/20 12:10 06:40 16:12 Sodium 136 L 135 L Potassium 3.7 3.2 L 3.9 Chloride 97 L 93 L Carbon Dioxide 37 H 38 H Anion Gap 2 L 4 L BUN 12 12 D Creatinine 0.6
== END 2020-09-06 14:08 | disposition home health service (06) ==
LOC: ANHSURGERY 18:54 → ANH2MED 18:54
PROVIDERS: Hospitalist; Nurse Practitioner; Admitting Provider Orthopaedic Surgery; PCP Family Medicine; Visit Provider Orthopaedic Surgery
PROC: (CPT 27130; principal; 2020-09-04 07:30)
DX: M16.12 Unilateral primary osteoarthritis, left hip (principal); E87.6 Hypokalemia; E83.42 Hypomagnesemia; I10 Essential (primary) hypertension; Z87.891 Personal history of nicotine dependence
CPT/HCPCS: 27130; 36415; 73501; 80048; 82948; 83735; 84132; 85014; 85018; 85025; 86850; 86900; 86901; 97110; 97116; 97161; 97165; 97530; 97535; A9270; C1713; C1776; G0378; J0171; J0690; J1100; J1170; J2250; J2270; J2370; J2405; J2704; J2795; J3010; J3475; J7120

== ENCOUNTER 2020-09-09 11:05 | Outpatient (NON) | payer MEDICARE, SELFPAY ==
[2020-09-09 11:34] LABS: Alanine Aminotransferase 23 U/L (14-59); Albumin Level 3.1 g/dL (3.4-5.0); Alkaline Phosphatase 74 U/L (46-116); Anion Gap 7 mmol/L (8-16); Aspartate Amino Transferase 21 U/L (15-37); Bilirubin,Total 0.5 mg/dL (0.00-1.00); Blood Urea Nitrogen 10 mg/dL (7-18); Calcium 9.8 mg/dL (8.5-10.1); Carbon Dioxide 34 mmol/L (21-32); Chloride 98 mmol/L (98-108); Estimated Glomerular Filt Rate > 60; Glucose 85 mg/dL (70-99); Osmolality Calculated 286 mOsm/kg (285-295); Potassium 3.4 mmol/L (3.5-5.1); Sodium 139 mmol/L (136-145); Total Protein 7.1 g/dL (6.4-8.2)
== END 2020-09-09 11:06 | disposition home or self-care (01) ==
LOC: CHSHH 11:07
PROVIDERS: Visit Provider Orthopaedic Surgery
DX: Z47.1 Aftercare following joint replacement surgery (principal); Z96.642 Presence of left artificial hip joint; Z87.891 Personal history of nicotine dependence
CPT/HCPCS: 36415; 80053

== ENCOUNTER 2020-09-27 10:02 | Outpatient (CLI) | payer MEDICARE, OTHER, SELFPAY ==
--- NOTE | ~2020-09-27 | US_ITS ---
EXAMINATION:US venous doppler LE LT INDICATION:Elevated d-dimer. TECHNIQUE: Multiple grayscale, color flow and Doppler images of the left lower extremity deep venous systems were obtained and reviewed. COMPARISON:No prior studies for comparison. FINDINGS: The common femoral, superficial femoral and popliteal veins demonstrate normal respiratory variation, augmentation and compressibility. Color flow is also seen within the posterior tibial, pe roneal, greater saphenous and profunda veins. IMPRESSION: 1: No lower extremity deep venous thrombosis. Reviewed, dictated and finalized at location B.
[2020-09-27 10:38] LABS: D Dimer 7.14 mg/L (0.19-0.50)
== END 2020-09-27 10:03 | disposition home or self-care (01) ==
PROVIDERS: PCP Family Medicine; Visit Provider Family Medicine
DX: R79.1 Abnormal coagulation profile (principal); M79.89 Other specified soft tissue disorders
CPT/HCPCS: 36415; 85380; 93971

== ENCOUNTER 2020-10-01 16:05 | Outpatient (RCR) | payer MEDICARE, OTHER, SELFPAY ==
--- NOTE | 2020-10-01 17:02 | PTOPEVAL ---
Thank you for referring Hayley Arora to [facility].? The patient is scheduled to be seen for therapy? ____x/week for ___ weeks. Please review, sign, date and return this plan of care LAURO. I agree with and certify that the following plan of care is medically necessary. Referring Physician Date Admitting Provider: Attending Provider: Marcello Ellis MD Referring Provider: *PT Outpatient Evaluation Start: 10/01/20 16:09 Freq: Status: Active Protocol: Document 10/01/20 16:00 ACR (Rec: 10/01/20 17:02 ACR [id number]) Therapy Assessment Status Assessment Status Assessment Status Evaluation Outpatient Past Medical History Neurological History Hx Neurological Disorders No Significant History Cardiovascular History Hx Hypertension Yes Hx Other Cardiac Disorders Yes: DENIES ANY CARDIAC SYMPTOMS.WALKS 0.5 MILES DAILY Respiratory History Hx Respiratory Disorders No Significant History Gastrointestinal History Hx Gastrointestinal Disorders No Significant History Genitourinary History Hx Genitourinary Disorders No Significant History Musculoskeletal History Hx Arthritis Yes: LT HIP Hx Other Musculoskeletal Disorders Yes: OA LT HIP Hematological History Hx Hematological Disorders No Significant History Endocrine History Hx Endocrine Disorders No Significant History HEENT History Hx Other HEENT Disorders Yes: GLASSES/CONTACTS Integumentary History Hx Skin Disorders No Significant History Reproductive History Hx Hysterectomy Yes: 1991 Psychosocial History Hx Psychiatric Disorders No Significant History Pain History History of Any Previous or Ongoing No Significant History Instance of Pain Anesthesia History Hx Anesthesia Reactions No Significant History Evaluation Information Problem Diagnosis L ELVIRA Onset 09/04/20 Subjective Information Patient states that she got a Query Text:As Reported By Patient/ total hip replacement and had Family to stay 2 nights. The patient states that putting her shoes and socks on is the most difficult. She is able to walk with no problem. The patient states that when she went to the MD recently and he liked everything and told her to still be cautious but do what feels comfortable. The patient states she had HH therapy for 3 weeks 2x/week. Prior Level of Function Activity Level (Last 3 Months) Occupation
== END 2020-10-24 11:04 | disposition home or self-care (01) ==
LOC: CHSPT 16:05
PROVIDERS: Visit Provider Orthopaedic Surgery
DX: Z96.642 Presence of left artificial hip joint (principal)
CPT/HCPCS: 97110; 97161; 97530

== ENCOUNTER 2021-04-14 12:33 | Outpatient (CLI) | payer MEDICARE, SELFPAY ==
[2021-04-14 14:13] LABS: SARS-CoV-2 RNA PCR Negative (Negative)
== END 2021-04-14 12:34 | disposition home or self-care (01) ==
LOC: CHSLAB 12:35
PROVIDERS: PCP Family Medicine; Visit Provider Family Medicine
DX: Z20.822 Contact with and (suspected) exposure to COVID-19 (principal)
CPT/HCPCS: C9803; U0003; U0005

== ENCOUNTER 2021-06-23 14:40 | Outpatient (CLI) | payer MEDICARE, OTHER, SELFPAY ==
--- NOTE | ~2021-06-23 | XR_ITS ---
EXAMINATION: XR chest 2V DATE: 06/23/2021 15:06 INDICATION: Cough. Dyspnea. TECHNIQUE: Frontal and lateral views of the chest were obtained. COMPARISON: None. FINDINGS: There is scarring at right lung apex. No pleural effusion or pneumothorax. The heart size i s normal. IMPRESSION: 1. Mild scarring at right lung apex. Reviewed, dictated and finalized at location A. NO BANKER
== END 2021-06-23 14:41 | disposition home or self-care (01) ==
LOC: CHSIMG 14:43
PROVIDERS: PCP Family Medicine; Visit Provider Family Medicine
DX: R05.9 Cough, unspecified (principal)
CPT/HCPCS: 71046

== ENCOUNTER 2021-07-08 10:16 | Outpatient (CLI) | payer MEDICARE, OTHER, SELFPAY | END 2021-07-08 10:17 | disposition home or self-care (01) | LOC: CHSCARD 10:17 | PROVIDERS: PCP Family Medicine; Visit Provider Family Medicine | DX: R05.9 Cough, unspecified (principal) | CPT/HCPCS: 94060; 94726; 94729 ==

== ENCOUNTER 2021-09-06 22:04 | Emergency (ER) | payer MEDICARE, OTHER, SELFPAY ==
--- NOTE | ~2021-09-06 | CT_ITS ---
EXAMINATION: CT brain wo con DATE: 09/06/2021 23:05 INDICATION: Confusion and emesis. Large amount of alcohol consumption. TECHNIQUE: Computed tomography (CT) of the head was performed without intravenous contrast. Sagittal and coronal reconstructions were performed. The mA was adjusted according to patient size. Iterative reconstruction technique was employed. The dose-length product was 605.33 mGy-cm. COMPARISON: None FINDINGS: No acute intracranial hemorrhage, acute infarction or abnormal extra axial fluid collection. There is mild scattered white matter hypoattenuation consistent with chronic small vessel ischemic disease. Ventricles are normal and symmetric. No mass/mass effect. The orbits, paranasal sinuses and mastoid a ir cells are normal. IMPRESSION: 1. Mild scattered white matter hypoattenuation consistent with chronic small vessel ischemic disease. No acute intracranial process. Reviewed, dictated and finalized at location A. IMPRESSION: 1. Mild scattered white matter hypoattenuation consistent with chronic small ve ssel ischemic disease. No acute intracranial process.
[2021-09-06 22:13] VITALS: BP 147/89; PULSE 70; RESP 16; TEMP 36.3; O2SAT 100
--- NOTE | 2021-09-06 22:24 | ED.AMS ---
HPI - Altered Mental Status General Chief Complaint: Unspecified Stated Complaint: vomiting, passed out Time Seen by Provider: 09/06/21 22:24 Source: patient and family History of Present Illness HPI narrative: 66-year-old witha history of smoking, alcoholism, arthritis had been drinking in the evening and smoking marijuana. At some point family felt that the patient -- became confused and disoriented -- patient stated that she did not feel right. The patient drinks chronically and she has never felt like this in the past. No history of blackouts in the past. -- Nausea with multiple episodes of vomiting. After 4 episodes of vomiting the patient is no longer nauseous. She denied abdominal pain or diarrhea. MD complaint: altered mental status and confusion Onset (ago): hour(s) Time: 21:00 Timing confirmed by: spouse Severity: mild Consistency of symptoms: waxing and waning Context: alcohol abuse Associated symptoms: denies other symptoms Related Data Home Medications Medication Instructions Recorded Confirmed calcium carbonate 600 mg calcium 600 mg PO DAILY 07/02/20 09/06/21 (1,500 mg) tablet cholecalciferol (vitamin D3) 100 400 mcg PO DAILY cap 07/02/20 09/06/21 mcg (4,000 unit) capsule estradiol 0.5 mg tablet 0.5 mg PO DAILY 07/02/20 09/06/21 losartan 100 mg PO HS 08/21/20 09/06/21 metoprolol succinate 50 mg PO HS 08/21/20 09/06/21 potassium chloride 10 meq PO DAILY 08/21/20 09/06/21 spironolactone 100 mg PO DIRECTED 09/06/21 09/06/21 Allergies Allergy/AdvReac Type Severity Reaction Status Date / Time No Known Allergies Allergy Verified 09/06/21 22:22 Review of Systems Review of Systems: All systems reviewed & are unremarkable except as noted in HPI and below Constitutional: Constitutional: Reports as per HPI and Reports no additional constitutional complaints Eyes: Eyes: Reports as per HPI and Reports no additional eye complaints ENT: Reports system reviewed and no additional complaints, except as documented and Reports as per HPI Cardiovascular: Cardiovascular: Reports as per HPI and Reports no additional cardiovascular complaints Respiratory: Respiratory: Reports as per HPI and Reports no additional respiratory complaints Gastrointestinal: Gastrointestinal: Reports as per HPI, Reports no additional gastrointestinal complaints, Reports nausea and Reports vomiting Genitourinary: Genitourinary: Reports no additional female genitourinary complaints Musculoskeletal: Musculoskeletal: Reports no additional musculoskeletal complaints and Reports arthralgias Integumentary/Breasts: Skin/Breast: Reports system reviewed and no additional complaints, except as docu and Reports as per HPI Neurologic: Reports system reviewed and no additional complaints, except as documented, Reports as per HPI and Reports confusion Psychiatric: Psychiatric: Reports no additional psychiatric complaints and Reports as per HPI Endocrine: Endocrine: Reports no additional endocrine complaints and Reports as per HPI Hematologic/Lymphatic: Hematologic/Lymphatic: Reports no additional hematologic/lymphatic complaints and Reports as per HPI Allergic/Immunologic: Allergic/Immunologic: Reports no additional allergic/immunologic complaints and Reports as per HPI PMFSH Past Medical History Medical History Degenerative joint disease of left hip Hypertension Surgical History Surgical History H/O: hysterectomy S/P total hip arthroplasty Family History Family History Mother Cancer Social History Social History Social History: The patient lives with her who is the durable power of typer for healthcare. The patient is listed as a full code. She has 2 children. 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
[2021-09-06 22:30] VITALS: BP 140/82; PULSE 74; RESP 16; O2SAT 99
--- NOTE | 2021-09-06 22:31 | ECG_ITS ---
Measurements Intervals [place] Rate: 67 P: 78 [place]: 165 QRS: 54 QRSD: 87 T: 13 QT: 393 QTc: 416 Interpretive Statements SINUS RHYTHM INCOMPLETE RIGHT BUNDLE BRANCH BLOCK BASELINE ARTIFACT- I, II, III, AVR, AVL, AVF, V1-V6 BORDERLINE ECG Electronically Signed On 09-07-2021 8:01:22 CDT by Adonis Currie D.O.
[2021-09-06 22:42] LABS: Glucose Point of Care 92 mg/dl (65-105)
[2021-09-06 23:00] LABS: Basophils Absolute Auto 0.05 K/mm3 (0.00-0.10); Basophils Percent Auto 0.8 % (0.0-1.0); Eosinophils Absolute Auto 0.13 K/mm3 (0.02-0.50); Hematocrit 29.6 % (35.0-42.0); Hemoglobin 10.2 g/dL (11.7-13.8); Immature Granulocyte Absolute 0.03 K/mm3 (0.00-0.00); Immature Granulocyte Percent A 0.5 % (0.0-0.0); Lymphocytes Absolute Auto 1.45 K/mm3 (1.10-4.50); Mean Corpuscular HGB Conc 34.5 g/dL (32.0-36.0); Mean Corpuscular Hemoglobin 34.3 pg (27.0-31.0); Mean Corpuscular Volume 99.7 fL (78.0-102.0); Mean Platelet Volume 9.6 fl (9.2-11.8); Monocytes Percent Auto 6.1 % (2.0-11.0); Neutrophils Absolute Auto 4.5 K/mm3 (1.7-7.2); Neutrophils Percent Auto 68.6 % (50.0-70.0); Platelet Count Result 159 K/mm3 (150-420); Red Blood Count 2.97 M/mm3 (4.20-5.40); Red Cell Distribution Width 11.3 % (11.6-14.4); White Blood Count 6.6 K/mm3 (4.8-10.8)
[2021-09-06 23:07] LABS: Prothrombin Time 10.3 Seconds (9.50-12.10)
[2021-09-06 23:12] LABS: Alanine Aminotransferase 19 U/L (14-59); Albumin Level 3.8 g/dL (3.4-5.0); Alkaline Phosphatase 61 U/L (46-116); Anion Gap 9 mmol/L (8-16); Aspartate Amino Transferase 17 U/L (15-37); Bilirubin,Total 0.2 mg/dL (0.00-1.00); Blood Urea Nitrogen 15 mg/dL (7-18); Carbon Dioxide 25 mmol/L (21-32); Chloride 87 mmol/L (98-108); Estimated CRCL calculation 54 ml/min; Estimated Glomerular Filt Rate > 60; Glucose 98 mg/dL (70-99); Lipase 69 U/L (73-393); Osmolality Calculated 252 mOsm/kg (285-295); Potassium 4.1 mmol/L (3.5-5.1); Sodium 121 mmol/L (136-145); Total Protein 6.9 g/dL (6.4-8.2); Troponin I 5.7 ng/L (0.00-60.4)
[2021-09-06 23:16] LABS: Magnesium 1.7 mg/dL (1.8-2.4); Phosphorus 3.8 mg/dL (2.6-4.7)
--- NOTE | 2021-09-06 23:32 | PC.NURSE ---
Pt's smells of ETOH and is asking to leave with pt. Pt does agree so ERP is called. ERP explains to pt and the importance of staying for care due to high alcohol and low sodium levels. Pt's became belligerent and starting arguing with ERP. ERP was able to explain the importance of transfer and finally pt and pt's agree.
[2021-09-06 23:35] LABS: Bilirubin Urine Negative (Negative); Color Urine Light Yellow (Yellow); Glucose Urine UA Negative (Negative); Ketones Urine Negative (Negative); Leukocyte Esterase Ur Negative (Negative); Nitrate Urine Positive (Negative); Protein Urine Negative (Negative); Urobilinogen Urine 0.2 mg/dL (0.2-1.0)
[2021-09-06 23:40] LABS: Add Urine Microscopic? YES; Appearance Urine Cloudy (Clear); Bacteria Urine 4+ /hpf; Blood Urine Trace-Intact (Negative); RBC Urine 0-2 /hpf (0-2); Squamous Epithelial Cell Urine Many /hpf (Few); WBC Urine 0-3 /hpf (0-3)
[2021-09-06 23:40] LABS: Amphetamine Screen Urine Negative (Negative); Barbiturate Screen Urine Negative (Negative); Benzodiazepines Screen Urine Negative (Negative); Cannabinoid Screen Urine Positive (Negative); Cocaine Screen Urine Negative (Negative); Methadone Screen Urine Negative (Negative); Opiate Screen Urine Negative (Negative); Phencyclidine Screen Urine Negative (Negative)
[2021-09-07] MEDS: SODIUM CHLORIDE 3% 500 ML 250 ML IV CONT (00:04)
[2021-09-07] MEDS: THIAMINE HCL 200 MG/2 ML VIAL 100 MG IV PUSH (00:05)
[2021-09-07] MEDS: MAGNESIUM SULF 2 GM/WATER 50ML 2 GM/50 ML BAG IVPB (00:05)
[2021-09-07 00:15] VITALS: BP 121/78; PULSE 78; RESP 16; O2SAT 99
[2021-09-07 00:32] LABS: Creatinine Urine 32.66 mg/dL (40-278); Sodium Urine Random 45 mmol/L (20-110)
[2021-09-07 00:33] VITALS: BP 122/79; PULSE 75; RESP 16; O2SAT 99
[2021-09-07 00:47] LABS: Thyroid Stimulating Hormone 3.74 uIU/mL (0.36-3.74)
[2021-09-07 00:48] LABS: NT Pro B Type Natriuretic Pept 274 pg/mL (0-125)
[2021-09-07 01:17] VITALS: BP 124/80; PULSE 77; RESP 16; TEMP 36.8; O2SAT 99
== END 2021-09-07 01:21 | disposition short-term general hospital (02) ==
PROVIDERS: Emergency Provider Internal Medicine Critical Care Medicine; PCP Family Medicine
DX: E87.1 Hypo-osmolality and hyponatremia (principal); E83.42 Hypomagnesemia; R41.0 Disorientation, unspecified; D64.9 Anemia, unspecified; M16.12 Unilateral primary osteoarthritis, left hip; I10 Essential (primary) hypertension; Z72.89 Other problems related to lifestyle; Z96.649 Presence of unspecified artificial hip joint; Z87.891 Personal history of nicotine dependence; Z79.899 Other long term (current) drug therapy
CPT/HCPCS: 36415; 70450; 80053; 80307; 81001; 82570; 82948; 83690; 83735; 83880; 84100; 84300; 84443; 84484; 85025; 85610; 93005; 96365; 96375; 99285; J3411; J3475; J7131

== ENCOUNTER 2021-09-07 04:58 | Observation (INO) | payer MEDICARE, OTHER, SELFPAY ==
[2021-09-07] VITALS (8 sets, daily range): BP systolic 106–146; BP diastolic 62–85; PULSE 60–91; RESP 12–21; TEMP 36.3–36.9; O2SAT 98–100; BMI 22.1
--- NOTE | 2021-09-07 03:46 | ADMGEN ---
This patient, Hayley Arora, was admitted to Medical Room [facility] @0145 . Patient/family oriented to hospital policies and general routines including ID bracelet, bed and alarms, visiting hours, pain management, procedures, bathroom and other care routines, personal items, smoking policy, room service/diet, and visiting hours. Information on how to activate the Rapid Response Team has been discussed. Patient/Family are encouraged to report perceived risks to care and to ask questions if they do not understand what they are told or what they should do.
--- NOTE | 2021-09-07 04:48 | PM.IMHP ---
H&P: HPI History of Present Illness Date/Time: 09/07/21 04:48 Chief Complaint: Altered mental status. Narrative: This is a 66-year-old female with past medical history significant for tobacco dependence, alcohol dependence. Patient comes as a transfer from outside hospital due to sodium of 121 patient presented to outside hospital emergency room after family became concerned for the patient's altered mental status confusion while the patient was doing alcohol and marijuana. Patient is now awake and alert x3 and she denies any pain or discomfort at this time she had been in her usual state of health states that she never felt ill. Patient denies any fevers, rigors, chills, pain or burning with urination, headaches, vision changes, chest pain, syncope, near syncope, dizziness. According to family patient had several episodes of nausea and vomiting prior to coming to the emergency room. Patient has been admitted for further evaluation management and treatment. Review of Systems Review of Systems: Altered mental status patient has no recollection of events. States that she never felt ill. Constitutional: Constitutional: Denies chills, Denies fatigue, Denies fever(s), Denies malaise and Denies weakness Eyes: Eyes: Denies change in vision ENT: Denies dysphagia, Denies vertigo, Denies nasal congestion, Denies nasal discharge, Denies nasal obstruction and Denies odynophagia Cardiovascular: Cardiovascular: Denies chest pain, Denies syncope, Denies radiating jaw, neck or arm pain, Denies palpitations and Denies dyspnea on exertion Respiratory: Respiratory: Denies cough and Denies dyspnea Gastrointestinal: Gastrointestinal: Denies abdominal pain, Denies dyspepsia, Denies heartburn, Denies diarrhea, Reports nausea and Reports vomiting Genitourinary: Genitourinary: Denies dysuria Musculoskeletal: Musculoskeletal: Denies back pain, Denies arthralgias and Denies joint swelling Integumentary/Breasts: Skin/Breast: Denies rash Neurologic: Denies focal weakness and Denies Sensory deficit (Neuro) Psychiatric: Psychiatric: Reports no additional psychiatric complaints and Reports as per HPI Endocrine: Endocrine: Denies cold intolerance, Denies fatigue, Denies flushing, Denies heat intolerance, Denies polyphagia, Denies polydipsia and Denies palpitations Hematologic/Lymphatic: Hematologic/Lymphatic: Reports no additional hematologic/lymphatic complaints and Reports as per HPI Allergic/Immunologic: Allergic/Immunologic: Reports no additional allergic/immunologic complaints and Reports as per HPI [facility] Past Medical History Medical History Degenerative joint disease of left hip Hypertension Surgical History Surgical History H/O: hysterectomy S/P total hip arthroplasty Family History Family History Mother Cancer Social History Social History Social History: The patient lives with her who is the durable power of attorney at law for healthcare. The patient is listed as a full code. She has 2 children. 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 She is an ex-smoker. She is a social drinker an occasionally uses marijuana. Smoking packs per day: 0.75 Smoking cigarettes per day: 15.0 Years smoked: 15 Smoking pack-years: 11.25 Smoking status: Former smoker Tobacco type: cigarettes Second hand tobacco smoke exposure: No Smoking end date: 04/15/00 Additional smoking assessment comments: DENIES ANY FORM OF TOBACCO USE Alcohol intake: current Drinks per week: 56 Alcohol use details: BEER Substance use: current Substance use type: marijuana Last use: 08/20/20 Gender identity (if verbalized by the patient): Female Sexual Orientation (if Verbalized by the Pa
[2021-09-07] MEDS: SODIUM CHLORIDE 0.9% IV 1,000 ML 65 ML IV CONT ×2 (05:30→21:30)
[2021-09-07 05:35] LABS: Basophils Percent Auto 0.8 % (0.2-1.2); Eosinophils Absolute Auto 0.1 K/mm3 (0-0.3); Eosinophils Percent Auto 1.3 % (0-4.4); Hematocrit 33.6 % (37.0-47.0); Hemoglobin 10.7 g/dL (12.0-15.0); Immature Granulocyte Absolute 0.01 K/mm3 (0.00-0.031); Immature Granulocyte Percent A 0.2 % (0-0.5); Lymphocytes Absolute Auto 1.37 K/mm3 (0.9-3.2); Mean Corpuscular HGB Conc 31.8 g/dl (32-36); Mean Corpuscular Hemoglobin 33.8 pg (26-34); Mean Platelet Volume 9.9 fl (7.4-10.4); Monocytes Absolute Auto 0.3 K/mm3 (0.1-0.6); Monocytes Percent Auto 5.7 % (2.6-8.5); Platelet Count Result 154 k/mm3 (150-375); Red Blood Count 3.17 M/mm3 (4.2-5.4); Red Cell Distribution Width 11.7 % (11.5-14.5); White Blood Count 4.7 K/mm3 (4.5-10.0)
[2021-09-07 05:50] LABS: Anion Gap 11 mmol/L (8-16); Blood Urea Nitrogen 10 mg/dL (7-17); Calcium 8.7 mg/dL (8.4-10.2); Carbon Dioxide 20 mmol/L (22-30); Chloride 100 mmol/L (98-107); Estimated CRCL calculation 73 ml/min; Estimated Glomerular Filt Rate > 60; Glucose 82 mg/dL (65-110); Phosphorus 3.6 mg/dL (2.5-4.5); Potassium 4.4 mmol/L (3.4-5.0); Sodium 131 mmol/L (137-145)
[2021-09-07] MEDS: ENOXAPARIN 40 MG/0.4 ML SYRINGE SUB-Q (09:41)
[2021-09-07] MEDS: CHOLECALCIFEROL 400 UNITS TABLET (VIT D) PO (09:42)
[2021-09-07] MEDS: CALCIUM CARBONATE (OSCAL) 500 MG TABLET PO (09:42)
--- NOTE | 2021-09-07 10:36 | PM.IMPN ---
Progress Note: A&P Assessment and Plan (1) Altered mental status: Qualifiers: Altered mental status type: disorientation Qualified Code(s): R41.0 - Disorientation, unspecified Code(s): R41.82 - Altered mental status, unspecified Status: Acute Assessment and Plan: Likely secondary to ingestion of alcohol in combination with marihuana. Now resolved (2) Alcohol intoxication: Qualifiers: Complication of substance-induced condition: with unspecified complication Qualified Code(s): F10.929 - Alcohol use, unspecified with intoxication, unspecified Code(s): F10.929 - Alcohol use, unspecified with intoxication, unspecified Status: Acute Assessment and Plan: Patient with alcohol level in the 200s CIWA protocol as needed (3) Hyponatremia: Code(s): E87.1 - Hypo-osmolality and hyponatremia Status: Acute Assessment and Plan: Holding spironolactone Will give IV fluid normal saline 0.9 Will continue to monitor Continue to trend (4) Hypertension: Code(s): I10 - Essential (primary) hypertension Status: Acute Assessment and Plan: Continue metoprolol and losartan Continue to monitor (5) UTI (urinary tract infection): Code(s): N39.0 - Urinary tract infection, site not specified Status: Acute Assessment and Plan: oral abx Subjective Date/time seen: 09/07/21 10:36 No neurologic complaints doing well otherwise Exam Narrative: Patient laying in bed. Const: General: cooperative, comfortable, no acute distress, well developed, alert, awake and other (Well-appearing) Nutritional Appearance: average body habitus Orientation/consciousness: patient oriented x3 HENMT: Head: normal to inspection, normocephalic and atraumatic Ears: hearing grossly normal bilaterally Face and sinus: normal facial exam Mouth: Yes Normal oral and palatal mucosa present Eyes: General: appearance normal, both eyes and all related structures Alignment and Position: alignment normal Sclera: sclerae normal Pupils: Equal, round and reactive pupils present EOM: EOMs intact bilaterally Neck: Neck: normal visual inspection, full ROM, no lymphadenopathy, supple and no JVD Thyroid: thyroid normal Lymphatic: no lymphadenopathy noted Resp: Effort & Inspection: normal respiratory effort and able to speak in complete sentences Auscultation: clear to auscultation bilaterally, no crackles, no rales, no rhonchi and no wheezes Cardio: Jugular venous distension: no JVD Rate: regular rate Rhythm: regular rhythm Heart sounds: S1 normal heart sound present and S2 normal heart sound present GI: Inspection: normal to inspection : General: Yes deferred Skin: General skin exam: normal color Rashes: no rashes Wounds: no wounds Neuro: General: patient oriented x3, CN's II-XI intact bilaterally and Unable to assess gait Cranial nerves: Yes CN's II-XII intact bilaterally and Yes Equal, round and reactive pupils present Cognition (Neuro): normal cognition Speech: normal speech Gait exam (Neuro): Unable to assess gait Motor exam (neuro): 5/5 motor strength present throughout Sensory Exam: No Sensory deficit (Neuro) Extrem: General: normal to inspection, full ROM, no joint enlargement and no pedal edema Psych: Appearance: grossly normal Objective Data Vital Signs Vital Signs: Vital Signs - 24 hr 09/07/21 02:06 09/07/21 02:43 09/07/21 04:00 Temperature 98.2 F Pulse Rate 67 62 62 Respiratory Rate 16 Blood Pressure 106/62 Pulse Oximetry 98 09/07/21 05:52 09/07/21 08:00 Temperature 98.3 F 98.5 F Pulse Rate 60 74 Respiratory Rate 12 14 Blood Pressure 117/66 145/76 H Pulse Oximetry 100 99 Intake/Output Intake/Output: Intake & Output 09/04/21 09/05/21 09/06/21 09/07/21 23:59 23:59 23:59 23:59 Intake Total 400 Output Total 550 Balance -150 Meds/Results Medications: Active Medications Generic Name Dose Route
[2021-09-07] MEDS: ONDANSETRON INJ 4 MG/2 ML VIAL IV PUSH (10:43)
[2021-09-07] MEDS: LOSARTAN POTASSIUM 100 MG TABLET PO (21:30)
[2021-09-07] MEDS: METOPROLOL SUCCINATE EXT REL 50 MG TABCR PO (21:30)
[2021-09-07] MEDS: estradioL 0.5 MG TABLET PO (21:31)
[2021-09-08] VITALS: PULSE 67
[2021-09-08 01:00] VITALS: BP 146/72; PULSE 59; RESP 21; TEMP 36.2; O2SAT 100
[2021-09-08 04:00] VITALS: PULSE 60
[2021-09-08 05:45] VITALS: BP 140/75; PULSE 60; RESP 20; TEMP 36.1; O2SAT 98
[2021-09-08 08:00] VITALS: PULSE 76
[2021-09-08] MEDS: CALCIUM CARBONATE (OSCAL) 500 MG TABLET PO (08:00)
[2021-09-08] MEDS: ENOXAPARIN 40 MG/0.4 ML SYRINGE SUB-Q (08:00)
[2021-09-08] MEDS: DOCUSATE SODIUM 100 MG CAPSULE PO (08:00)
[2021-09-08] MEDS: CHOLECALCIFEROL 400 UNITS TABLET (VIT D) PO (08:00)
[2021-09-08 10:08] VITALS: BP 127/71; PULSE 74; RESP 14; TEMP 36.8; O2SAT 97
--- NOTE | 2021-09-08 10:58 | PM.DS ---
DS: Admitting Diagnosis Discharge Date September 08, 2021 Admitting Diagnosis Hyponatremia alcohol intoxication DS: Discharge Diagnosis Discharge Diagnosis (1) Altered mental status: Qualifiers: Altered mental status type: disorientation Qualified Code(s): R41.0 - Disorientation, unspecified Code(s): R41.82 - Altered mental status, unspecified Status: Inactive Assessment and Plan: Likely secondary to ingestion of alcohol in combination with marihuana. Now resolved (2) Alcohol intoxication: Qualifiers: Complication of substance-induced condition: with unspecified complication Qualified Code(s): F10.929 - Alcohol use, unspecified with intoxication, unspecified Code(s): F10.929 - Alcohol use, unspecified with intoxication, unspecified Status: Inactive Assessment and Plan: With no indication for withdrawal (3) Hyponatremia: Code(s): E87.1 - Hypo-osmolality and hyponatremia Status: Inactive Assessment and Plan: Improved (4) Hypertension: Code(s): I10 - Essential (primary) hypertension Status: Acute Assessment and Plan: continue home meds (5) UTI (urinary tract infection): Code(s): N39.0 - Urinary tract infection, site not specified Status: Acute Assessment and Plan: oral abx DS: Summary Hospital Course Hospital Course: Patient was admitted for electrolyte abnormalities secondary alcohol abuse. IV fluids corrected her electrolytes had no withdrawal she can be discharged. Also noted she had a UTI will Time Spent with Patient Time attestation: Total time spent providing and/or coordinating discharge services: Exam Narrative: Patient laying in bed. Const: General: cooperative, comfortable, no acute distress, well developed, alert, awake and other (Well-appearing) Nutritional Appearance: average body habitus Orientation/consciousness: patient oriented x3 HENMT: Head: normal to inspection, normocephalic and atraumatic Ears: hearing grossly normal bilaterally Face and sinus: normal facial exam Mouth: Yes Normal oral and palatal mucosa present Eyes: General: appearance normal, both eyes and all related structures Alignment and Position: alignment normal Sclera: sclerae normal Pupils: Equal, round and reactive pupils present EOM: EOMs intact bilaterally Neck: Neck: normal visual inspection, full ROM, no lymphadenopathy, supple and no JVD Thyroid: thyroid normal Lymphatic: no lymphadenopathy noted Resp: Effort & Inspection: normal respiratory effort and able to speak in complete sentences Auscultation: clear to auscultation bilaterally, no crackles, no rales, no rhonchi and no wheezes Cardio: Jugular venous distension: no JVD Rate: regular rate Rhythm: regular rhythm Heart sounds: S1 normal heart sound present and S2 normal heart sound present GI: Inspection: normal to inspection : General: Yes deferred Skin: General skin exam: normal color Rashes: no rashes Wounds: no wounds Neuro: General: patient oriented x3, CN's II-XI intact bilaterally and Unable to assess gait Cranial nerves: Yes CN's II-XII intact bilaterally and Yes Equal, round and reactive pupils present Cognition (Neuro): normal cognition Speech: normal speech Gait exam (Neuro): Unable to assess gait Motor exam (neuro): 5/5 motor strength present throughout Sensory Exam: No Sensory deficit (Neuro) Extrem: General: normal to inspection, full ROM, no joint enlargement and no pedal edema Psych: Appearance: grossly normal Discharge Plan Discharge Attending physician on discharge: Adolph Ibrahim Discharging Clinician: Adolph Ibrahim Patient Disposition: Home, Self-Care Activity: no preference Diet: as tolerated Patient Instructions: Antibiotic Form, Hyponatremia (DC) Stand Alone Forms: General Discharge Information Follow-up/Referrals: Elijah Holloway MD [Primary Care Provider] - [facility]
== END 2021-09-08 12:00 | disposition home or self-care (01) ==
PROVIDERS: Admitting Provider Internal Medicine; PCP Family Medicine; Visit Provider Chiropractor
DX: E87.1 Hypo-osmolality and hyponatremia (principal); N39.0 Urinary tract infection, site not specified; R41.0 Disorientation, unspecified; F10.929 Alcohol use, unspecified with intoxication, unspecified; I10 Essential (primary) hypertension; M16.12 Unilateral primary osteoarthritis, left hip; Z87.891 Personal history of nicotine dependence
CPT/HCPCS: 36415; 80048; 83735; 84100; 85025; 96361; 96372; 96374; A9270; G0378; G0379; J1650; J2405; J7030

== ENCOUNTER 2021-09-29 13:17 | Outpatient (CLI) | payer MEDICARE, OTHER, SELFPAY ==
--- NOTE | 2021-09-29 13:30 | ECHO_ITS ---
Patient Info Name: Hayley Arora Age: 66 years : 1955 Gender: Female Ht: 64 in Wt: 125 lbs BSA: 1.60 m2 HR: 60 bpm BP: 128 / 68 mmHg Technical Quality: Good Exam Date: 09/29/2021 1:26 PM Exam Location: [facility] Patient Status: Outpatient Admit Date: 09/29/2021 Staff Ordering Physician: Elijah Holloway MD Sheetmetal Patternmaker: Toni Riggs RDCS, RT Attending Provider: Elijah Holloway MD Referring Physician: Jewel ASHLEY; Exam Type: CA echo doppler color flow Study Info Indications I11.0 - Hypertensive heart disease with heart failure Complete two-dimensional, color flow and Doppler transthoracic echocardiogram is performed. Strain analysis performed. Summary 1. Complete two-dimensional, color flow and Doppler transthoracic echocardiogram is performed. 2. Left ventricular chamber dimension is normal. 3. Left ventricular systolic function is normal, estimated at 60-65%. 4. The left ventricular diastolic function is normal. 5. E/e' 6 is not elevated. 6. Global longitudinal strain is normal at -23.2%. 7. There is mild aortic valve regurgitation. 8. There is trace tricuspid valve regurgitation. 9. Dilated inferior vena cava with >50% collapse upon inspiration consistent with normal right atrial pressure, 10 mmHg. Left Ventricle E/e' 6 is not elevated. Global longitudinal strain is normal at -23.2%. Left ventricular chamber dimension is normal. Left ventricular systolic function is normal, estimated at 60-65%. The left ventricular diastolic function is normal. Right Ventricle Right ventricular systolic function is normal and with normal TAPSE 2.5 cm. Right ventricular chamber dimension is normal. Left Atria Left atrial chamber dimension is normal. Right Atria Right atrial chamber dimension is normal. Aortic Valve The aortic valve is trileaflet. There is no aortic valve stenosis. There is mild aortic valve regurgitation. Pulmonic Valve There is no pulmonic regurgitation. Mitral Valve There is no mitral valve stenosis. There is no mitral valve regurgitation. Tricuspid Valve There is trace tricuspid valve regurgitation. RVSP is not calculated due to an inadequate TR jet. Pericardium/Pleural There is no pericardial effusion. Inferior Vena Cava Dilated inferior vena cava with >50% collapse upon inspiration consistent with normal right atrial pressure, 10 mmHg. Aorta The aortic root size at the sinus of Valsalva is normal. Left Ventricular Outflow Tract Name Value Normal LVOT 2D LVOT Diameter 2.0 cm LVOT Doppler LVOT Peak Velocity 76 cm/s LVOT Peak Gradient 2 mmHg LVOT Mean Gradient 1 mmHg LVOT VTI 17 cm LVOT VTI/AV VTI Ratio 0.7 LVOT Stroke Volume 51 ml Mitral Valve Name Value Normal MV Doppler -
== END 2021-09-29 13:18 | disposition home or self-care (01) ==
LOC: CHSIMG 13:19
PROVIDERS: PCP Family Medicine; Visit Provider Family Medicine
DX: I10 Essential (primary) hypertension (principal)
CPT/HCPCS: 93306

== ENCOUNTER 2022-03-16 07:46 | Outpatient (RCR) | payer MEDICARE, OTHER, SELFPAY ==
--- NOTE | 2022-03-16 07:48 | PTOPEVAL1 ---
Assessment and note entered by Adolph Negrete Evaluation Information Assessment Status Evaluation Diagnosis left shoulder pain Onset 03/09/22 Subjective Information Pt. reports she developed left shoulder pain about 1 month ago. She reports that pain is noticed with reaching back behind her. She states that she notices it mostly with reaching to the backseate of the car or behind her back. she has no complication with sleep. She describes pain in the lateral brachial region. She reports that her goal for therapy is to decrease her pain. Reported Pain Level Pain Score 4: Self Report Assessment PT Clinical Summary Pt. is a 66 year old female who enters the clinic with left shoulder pain. She presents with indication of left shoulder impingement syndrome. She presents with pain, impaired ROM and impaired u.e. strength. Continued treatment is indicated in order to improve these areas to allow the pt. to be able to complete all IADL's with improved comfort. Plan of Care Interventions Electrical Stimulation,Hot Pack/Cold Pack,Manual Therapy,Therapeutic Activities,Therapeutic Exercise PT Services Indicated Yes Treatment Frequency and 2x/week x 8 visits Duration These treatments will address the objective and functional deficits as defined above. The patient will be advanced safely and appropriately in order for the patient to progress towards his/her prior level of function. Additional exercises will be introduced and as well as a comprehensive home exercise program upon discharge, if needed, ?to ensure carryover of functional gains achieved in the clinic. This treatment plan has been reviewed and agreement upon by the patient.
--- NOTE | 2022-04-16 10:17 | PTOPPROG ---
Assessment and note entered by Grisel Barragan, PT Evaluation Information Assessment Status Progress Diagnosis L Shoulder Pain Onset 03/09/22 Subjective Information Hayley reports her left shoulder still has pain when she reaches overhead, reaches to the side, and when pulling things like the sheets/blankets. She feels she has improved 60%. She still has difficulty pulling clothes out of the dryer, making the bed, and putting items into overhead cabinets. Assessment PT Clinical Summary Hayley Arora has completed 8 skilled PT visits for left shoulder pain. She is reporting a 60% overall improvement since initiating PT but she still has pain with reaching overhead and to the side as well as with pulling with her left arm. She objectively demonstrates improved left shoulder abduction and internal rotation ROM and improved right shoulder flexion strength. She continues to demonstrate deficits in left shoulder ROM and has had a regression in external rotation ROM. She will benefit from continuation of skilled PT for 2 additional weeks to further improve ROM and to progress her home exercise program before [facility]. Plan of Care Interventions Electrical Stimulation,Hot Pack/Cold Pack,Manual Therapy,Patient/Caregiver Educati,Therapeutic Activities,Therapeutic Exercise PT Services Indicated Yes Treatment Frequency and 2 times a week for 4 more visits Duration These treatments will address the objective and functional deficits as defined above. The patient will be advanced safely and appropriately in order for the patient to progress towards his/her prior level of function. Additional exercises will be introduced and as well as a comprehensive home exercise program upon discharge, if needed, ?to ensure carryover of functional gains achieved in the clinic. This treatment plan has been reviewed and agreement upon by the patient.
--- NOTE | 2022-04-27 09:41 | PTOPDC ---
Assessment and note entered by Maite Simon DPT Evaluation Information Assessment Status Discharge Diagnosis L Shoulder Pain Onset 03/09/22 Subjective Information Pt is leaving for a 30-day trip to [place]. She reports little to no difficulty with activities at home. She reports she barely has pain anymore except for when she is reaching behind her back, then she gets a sharp twinge in her shoulder blade . Reported Pain Level Pain Score 0: Self Report Assessment PT Clinical Summary Pt presents to PT with significant improvements in L shoulder pain, strength, and range of motion since her initial evaluation. While she still notes some discomfort with reaching behind her back, she was provided with manual therapy for alleviation today and reported significant improvements in symptoms afterwards. Shew as educated on how she could perform during her trip with a tennis ball, and was educated on the importance of continuing her HEP independently to further improve and maintain her improvements with PT so far. She is to be discharged from skilled PT at this time and is to follow-up as needed regarding her POC. Plan of Care PT Services Indicated No
== END 2022-04-27 09:39 | disposition home or self-care (01) ==
LOC: CHSPT 07:46
PROVIDERS: PCP Family Medicine; Visit Provider Family Medicine
DX: M25.512 Pain in left shoulder (principal)
CPT/HCPCS: 97014; 97110; 97140; 97161; G0283

== ENCOUNTER 2022-08-31 09:15 | Outpatient (CLI) | payer MEDICARE, SELFPAY ==
--- NOTE | 2022-08-31 09:20 | EST_ITS ---
Patient Info Name: Hayley Arora Age: 67 years : 1955 Gender: Female Ht: 65 in Wt: 121 lbs BSA: 1.58 m2 HR: 68 bpm BP: 101 / 73 mmHg Heart Rhythm: Sinus Rhythm Technical Quality: Good Exam Date: 08/31/2022 9:34 AM Exam Location: [facility] Patient Status: Outpatient Admit Date: 08/31/2022 Staff Ordering Physician: Elijah Holloway MD Attending Provider: Elijah Holloway MD Exam Type: CA stress test treadmill Study Info A treadmill exercise stress test was performed. History/Risk Factors Hypertension: Yes Summary 1. 1. Abnormal Jordy exercise stress test for ischemic ST changes by ECG criteria. 2. 2. Reduced functional capacity, achieving 8.9 METs of workload. 3. 3. Appropriate HR response to exercise. 4. 4. Appropriate HR recovery at 1 minute post exercise. 5. 5. No imaging with stress testing. Protocol: Jordy Stress ECG Details Stage: REST Duration (min): 0 min : 56 sec Speed (mph): 0.0 Grade (%): 0 HR (bpm): 67 SBP (mmHg): 101 DBP (mmHg): 73 METS: --- Stage: REST Duration (min): 22 min : 58 sec Speed (mph): 0.0 Grade (%): 0 HR (bpm): 95 SBP (mmHg): 101 DBP (mmHg): 73 METS: --- Stage: STAGE 1 Duration (min): 1 min : 0 sec Speed (mph): 1.7 Grade (%): 10 HR (bpm): 98 SBP (mmHg): 101 DBP (mmHg): 73 METS: --- Stage: STAGE 1 Duration (min): 2 min : 0 sec Speed (mph): 1.7 Grade (%): 10 HR (bpm): 106 SBP (mmHg): 101 DBP (mmHg): 73 METS: --- Stage: STAGE 1 Duration (min): 3 min : 0 sec Speed (mph): 1.7 Grade (%): 10 HR (bpm): 111 SBP (mmHg): 138 DBP (mmHg): 66 METS: --- Stage: STAGE 2 Duration (min): 1 min : 0 sec Speed (mph): 2.5 Grade (%): 12 HR (bpm): 144 SBP (mmHg): 138 DBP (mmHg): 66 METS: --- Stage: STAGE 2 Duration (min): 2 min : 0 sec Speed (mph): 2.5 Grade (%): 12 HR (bpm): 152 SBP (mmHg): 138 DBP (mmHg): 66 METS: --- Stage: STAGE 2 Duration (min): 3 min : 0 sec Speed (mph): 2.5 Grade (%): 12 HR (bpm): 156 SBP (mmHg): 118 DBP (mmHg): 57 METS: --- Stage: STAGE 3 Duration (min): 1 min : 0 sec Speed (mph): 3.4 Grade (%): 14 HR (bpm): 177 SBP (mmHg): 118 DBP (mmHg): 57 METS: --- Stage: STAGE 3 Duration (min): 1 min : 3 sec Speed (mph): 3.4 Grade (%): 14 HR (bpm): 177 SBP (mmHg): 118 DBP (mmHg): 57 METS: --- Stage: RECOVERY Duration (min): 0 min : 56 sec Speed (mph): 0.0 Grade (%): 0 HR (bpm): 142 SBP (mmHg): 118 DBP (mmHg): 57 METS: --- Stage: RECOVERY Duration (min): 1 min : 56 sec Speed (mph): 0.0 Grade (%): 0 HR (bpm): 98 SBP (mmHg): 118 DBP (mmHg): 75 METS: --- Stage: RECOVERY Duration (min): 2 min : 56 sec Speed (mph): 0.0 Grade (%): 0 HR (bpm): 82 SBP (mmHg): 118 DBP (mmHg): 75 METS: --- Stage: RECOVERY Duration (min):
== END 2022-08-31 09:16 | disposition home or self-care (01) ==
LOC: CHSCARD 09:15
PROVIDERS: PCP Family Medicine; Visit Provider Family Medicine
DX: R55 Syncope and collapse (principal)
CPT/HCPCS: 93017

== ENCOUNTER 2022-11-25 13:14 | Emergency (ER) | payer MEDICARE, SELFPAY ==
[2022-11-25] VITALS (25 sets, daily range): BP systolic 120–159; BP diastolic 61–96; PULSE 59–90; RESP 14–20; TEMP 37.1; O2SAT 93–100
--- NOTE | 2022-11-25 13:20 | ECG_ITS ---
Measurements Intervals Amo Rate: 80 P: 79 CA: 170 QRS: 31 QRSD: 86 T: -34 QT: 330 QTc: 382 Interpretive Statements SINUS RHYTHM WITH OCCASIONAL ECTOPIC PREMATURE COMPLEXES POSSIBLE RIGHT ATRIAL ENLARGEMENT [0.25mV P-WAVE] POSSIBLE LEFT ATRIAL ENLARGEMENT [-0.1mV P-WAVE IN V1/V2] ST & T-WAVE ABNORMALITY, CONSIDER INFEROLATERAL ISCHEMIA ABNORMAL ECG COMPARED TO ECG 09/06/2021 22:43:58 ST/T-WAVE ABNORMALITY NOW PRESENT Electronically Signed On 11-25-2022 15:35:44 CDT by Juventino Prather M.D.
--- NOTE | 2022-11-25 13:21 | ED.NAVMDI ---
HPI - Nausea/Vomiting/Diarrhea General Chief complaint: Nausea/Vomiting/Diarrhea Stated complaint: Nausea Time Seen by Provider: 11/25/22 13:20 Source: patient Mode of arrival: ambulatory Limitations: no limitations History of Present Illness HPI Narrative: 67-year-old female with a history of hypertension, arthritis, asthma, status post left hip replacement, with the recent syncopal spell and a positive stress test presents to the ER with 13 hour history of -- nausea with multiple episodes of vomiting. No diarrhea. -- epigastric pain -- Generalized headache -- cramping of her hands -- diaphoresis patient denies any chest pain. No fever MD elicited complaint: nausea and vomiting Pertinent past history: anorexia Onset (ago): hour(s) ( symptoms started at midnight) Description of vomiting: watery Associated nausea: Yes Associated abdominal pain: Yes Location of pain: epigastric Severity: severe Quality: aching Exacerbating factors: none Relieving factors: none Associated symptoms: denies other symptoms and diaphoresis Related Data Home Medications Medication Instructions Recorded Confirmed losartan 100 mg tablet 100 mg PO HS 09/10/22 11/25/22 estradiol 0.5 mg tablet 0.5 mg PO DAILY 11/25/22 11/25/22 Allergies Allergy/AdvReac Type Severity Reaction Status Date / Time No Known Allergies Allergy Verified 11/25/22 13:42 Review of Systems Review of Systems: All systems reviewed & are unremarkable except as noted in HPI and below Constitutional: Constitutional: Reports as per HPI and Reports no additional constitutional complaints Eyes: Eyes: Reports as per HPI and Reports no additional eye complaints ENT: Reports system reviewed and no additional complaints, except as documented Cardiovascular: Cardiovascular: Reports as per HPI and Reports no additional cardiovascular complaints Respiratory: Respiratory: Reports as per HPI and Reports no additional respiratory complaints Gastrointestinal: Gastrointestinal: Reports as per HPI, Reports no additional gastrointestinal complaints, Reports nausea and Reports vomiting Genitourinary: Genitourinary: Reports no additional female genitourinary complaints Musculoskeletal: Musculoskeletal: Reports no additional musculoskeletal complaints and Reports as per HPI Integumentary/Breasts: Skin/Breast: Reports system reviewed and no additional complaints, except as docu and Reports as per HPI Neurologic: Reports system reviewed and no additional complaints, except as documented and Reports as per HPI Psychiatric: Psychiatric: Reports no additional psychiatric complaints, Reports as per HPI and Reports anxiety Endocrine: Endocrine: Reports no additional endocrine complaints and Reports as per HPI Hematologic/Lymphatic: Hematologic/Lymphatic: Reports no additional hematologic/lymphatic complaints and Reports as per HPI Allergic/Immunologic: Allergic/Immunologic: Reports no additional allergic/immunologic complaints and Reports as per HPI PMFSH Past Medical History Medical History Asthma Degenerative joint disease of left hip Hypertension Surgical History Surgical History H/O: hysterectomy S/P total hip arthroplasty Family History Family History Mother , age 67 Carcinoma of colon Father , age 96 Heart disease Sibling Pancreatic cancer Social History Social History Social History: The patient lives with her who is the durable power of inventory checker for healthcare. The patient is listed as a full code. She has 2 children. 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 She is an ex-smoker. She is a social drinker an occasionally uses marijuana. Smoking packs per day: 0.75 Sm
[2022-11-25] MEDS: LACTATED RINGERS 1,000 ML 999 ML IV CONT ×3 (13:33→19:39)
[2022-11-25] MEDS: PROCHLORPERAZINE EDISYLATE 10 MG/2 ML VIAL IV PUSH (13:34)
[2022-11-25 13:40] LABS: Basophils Absolute Auto 0.07 K/mm3 (0.00-0.10); Basophils Percent Auto 0.7 % (0.0-1.0); Eosinophils Absolute Auto 0.01 K/mm3 (0.02-0.50); Eosinophils Percent Auto 0.1 % (1.0-6.0); Hematocrit 39.7 % (35.0-42.0); Hemoglobin 13.5 g/dL (11.7-13.8); Immature Granulocyte Absolute 0.03 K/mm3 (0.00-0.00); Immature Granulocyte Percent A 0.3 % (0.0-0.0); Lymphocytes Absolute Auto 2.64 K/mm3 (1.10-4.50); Lymphocytes Percent Auto 26.1 % (18.0-42.0); Mean Corpuscular Hemoglobin 30.5 pg (27.0-31.0); Mean Corpuscular Volume 89.8 fL (78.0-102.0); Mean Platelet Volume 10.9 fl (9.2-11.8); Monocytes Absolute Auto 0.37 K/mm3 (0.10-0.90); Monocytes Percent Auto 3.7 % (2.0-11.0); Neutrophils Percent Auto 69.1 % (50.0-70.0); Platelet Count Result 206 K/mm3 (150-420); Red Blood Count 4.42 M/mm3 (4.20-5.40); White Blood Count 10.1 K/mm3 (4.8-10.8)
[2022-11-25 13:55] LABS: Prothrombin Time 11.1 Seconds (9.64-11.0)
[2022-11-25 14:14] LABS: Albumin Level 4.3 g/dL (3.4-5.0); Alkaline Phosphatase 89 U/L (46-116); Anion Gap 19 mmol/L (8-16); Aspartate Amino Transferase 20 U/L (15-37); Bilirubin,Total 0.7 mg/dL (0.00-1.00); Blood Urea Nitrogen 12 mg/dL (7-18); Calcium 9.7 mg/dL (8.5-10.1); Carbon Dioxide 25 mmol/L (21-32); Chloride 97 mmol/L (98-108); Estimated CRCL calculation 45 ml/min; Estimated Glomerular Filt Rate > 60; Glucose 165 mg/dL (70-99); Lactic Acid Reflex 5.7 mmol/L (0.4-2.0); Lipase 25 U/L (16-77); Osmolality Calculated 295 mOsm/kg (285-295); Sodium 141 mmol/L (136-145); Total Protein 7.7 g/dL (6.4-8.2); Troponin I 5.6 ng/L (0.00-60.4)
[2022-11-25 14:18] LABS: Potassium 1.9 mmol/L (3.5-5.1)
[2022-11-25 14:27] LABS: Appearance Urine Clear (Clear); Bilirubin Urine Negative (Negative); Blood Urine Negative (Negative); Color Urine Light Yellow (Yellow); Glucose Urine UA Negative (Negative); Ketones Urine 1+ (Negative); Leukocyte Esterase Ur Negative LEU/UL (Negative); Nitrate Urine Negative (Negative); Protein Urine Trace (Negative); Urobilinogen Urine 0.2 mg/dL (0.2-1.0)
[2022-11-25 14:37] LABS: Magnesium 1.4 mg/dL (1.8-2.4)
[2022-11-25] MEDS: KCL 20 MEQ/SW 100 ML 100 ML 50 MEQ IVPB ×3 (14:41→22:30)
[2022-11-25] MEDS: PANTOPRAZOLE SODIUM IV 40 MG VIAL IV PUSH (14:41)
[2022-11-25 15:01] LABS: Alanine Aminotransferase 18 U/L (14-59)
[2022-11-25 15:49] LABS: Add Urine Microscopic? YES
[2022-11-25 15:50] LABS: Bacteria Urine 1+ /hpf; RBC Urine 0-2 /hpf (0-2); Squamous Epithelial Cell Urine Moderate /hpf (Few); WBC Urine 0-3 /hpf (0-3)
[2022-11-25] MEDS: LACTATED RINGERS 500 ML 999 ML IV CONT ×3 (16:21→22:29)
[2022-11-25] MEDS: SPIRONOLACTONE 25 MG TABLET PO ×2 (16:24→22:30)
[2022-11-25] MEDS: MAGNESIUM SULF 2 GM/WATER 50ML 2 GM/50 ML BAG IVPB (16:29)
[2022-11-25 16:38] LABS: Reflex Lactic Acid Yes or No Add Lactic
[2022-11-25 18:00] LABS: Lactic Acid 2.8 mmol/L (0.4-2.0)
[2022-11-25 18:07] LABS: Magnesium 2.4 mg/dL (1.8-2.4)
[2022-11-25 18:15] LABS: Potassium 2.2 mmol/L (3.5-5.1)
--- NOTE | 2022-11-25 19:04 | PC.NURSE ---
PHYSICIAN CHANGED AND ENTERED ORDER FOR LR. BAG SPIKED, IVF NOT STARTED.
[2022-11-25] MEDS: ONDANSETRON INJ 4 MG/2 ML VIAL IV PUSH (19:09)
[2022-11-25] MEDS: SODIUM CHLORIDE 0.9% IV 1,000 ML 50 ML (19:11)
[2022-11-25] MEDS: POTASSIUM CHLORIDE 20 MEQ ER TABLET 40 MEQ PO (19:36)
[2022-11-25 22:04] LABS: Potassium 2.8 mmol/L (3.5-5.1)
[2022-11-26] MEDS: LACTATED RINGERS 500 ML 999 ML IV CONT (00:01)
[2022-11-26 00:06] VITALS: BP 163/86; PULSE 79; RESP 16; O2SAT 98
[2022-11-26 01:03] VITALS: BP 129/72; PULSE 73; RESP 16; O2SAT 95
== END 2022-11-26 01:15 | disposition home or self-care (01) ==
PROVIDERS: Emergency Provider Internal Medicine Critical Care Medicine; PCP Family Medicine
DX: R10.13 Epigastric pain (principal); E87.8 Other disorders of electrolyte and fluid balance, not elsewhere classified; I10 Essential (primary) hypertension; Z96.642 Presence of left artificial hip joint; Z87.891 Personal history of nicotine dependence
CPT/HCPCS: 36415; 80053; 81001; 83605; 83690; 83735; 84132; 84484; 85025; 85610; 93005; 96361; 96365; 96366; 96367; 96375; 99284; A9270; C9113; J0780; J2405; J3475; J3480; J7030; J7120

== ENCOUNTER 2022-12-15 08:12 | Outpatient (CLI) | payer MEDICARE, SELFPAY ==
--- NOTE | ~2022-12-15 | NM_ITS ---
EXAM: NM gastric emptying study DATE: 12/15/2022 11:44 INDICATION: Recurrent vomiting TECHNIQUE: A gastric emptying study was performed using the methodology of Iliana COLLIER, et al. J Nucl Med 2007; 48:568-572. The patient was given a meal consisting of 2 scrambled eggs labeled with 1 mCi Tc-99m sulfur colloid, 2 slices of toast, two packages of jam, and approximately 120 mL of water. Si multaneous anterior and posterior 1-min images of the abdomen were obtained with the patient supine a t multiple time points over a total period of 4 hours. The geometric mean of anterior and posterior v iews was determined, and the percentage retention was calculated for each time point. COMPARISON: None. FINDINGS: Gastric retention of the radiotracer-labeled meal was 57%, 32%, and 10% at the 1-hour, 2-hour, and 4- hour time points, respectively. With this technique, apparent rapid gastric emptying is suggested by <30% gastric retention at 1 hour. Delayed gastric emptying is defined by gastric retention of >90% at 1 hour, >60% retention at 2 hours, or >10% retention at 4 hours. IMPRESSION: 1. Borderline delayed gastric emptying at 4 hours. Reviewed, dictated and finalized at location A.
== END 2022-12-15 08:13 | disposition home or self-care (01) ==
LOC: CHSIMG 08:15
PROVIDERS: PCP Family Medicine; Visit Provider Family Medicine
DX: R11.15 Cyclical vomiting syndrome unrelated to migraine (principal); K30 Functional dyspepsia
CPT/HCPCS: 78264; A9541

== ENCOUNTER 2023-01-06 07:41 | Outpatient (CLI) | payer MEDICARE, SELFPAY ==
--- NOTE | ~2023-01-06 | CT_ITS ---
CT of the Abdomen and Pelvis: Indication: Weight loss Technique: 2.5 mm axial scans were obtained through the abdomen and pelvis following intravenous adm inistration of 100 cc of Omnipaque 350. Dose reduction technique was used on this scan by utilizing a utomated exposure control and iterative reconstruction technique. The dose-length product (DLP) was 2 41.02 mGy-cm. Findings: Scans through the lung bases are unremarkable. The liver, spleen, pancreas, right adrenal gland and kidneys are within normal limits. Small gallblad sukhi polyp versus stone present. 1.6 cm left adrenal nodule is present, indeterminate (axial image 54) . No evidence of aortic aneurysm. No lymphadenopathy. No bowel obstruction or bowel wall thickening. There is no evidence to suggest acute appendicitis. Images through the pelvis are mildly degraded by streak artifact from left hip arthroplasty. Urinary bladder appears unremarkable. No pelvic mass evident. No ascites. Impression: 1.6 cm left adrenal nodule, indeterminate. Follow-up MR recommended to further assess for adenoma saturnino patricia other lesion. Small gallbladder wall polyp versus stone. Consider ultrasound for further evaluation if indicated. Reviewed, dictated and finalized at [facility]. Impression: 1.6 cm left adrenal nodule, indeterminate. Follow-up MR recommended to further assess for adenoma versus other lesion. Small gallbladder wall polyp versus stone. Consider ultrasound for further eval uation if indicated.
[2023-01-06 08:11] LABS: Estimated Glomerular Filt Rate > 60
== END 2023-01-06 07:42 | disposition home or self-care (01) ==
PROVIDERS: PCP Family Medicine; Visit Provider Nurse Practitioner
DX: R63.4 Abnormal weight loss (principal); E27.8 Other specified disorders of adrenal gland
CPT/HCPCS: 74177; Q9967

== ENCOUNTER 2023-01-23 09:46 | Outpatient (CLI) | payer MEDICARE, SELFPAY ==
--- NOTE | ~2023-01-23 | MR_ITS ---
EXAMINATION: MR brain/brain stem wo/w con DATE: 01/23/2023 10:59 INDICATION: CHRONIC COLLIER TECHNIQUE: Magnetic resonance imaging (MRI) of the brain and brainstem was performed without and with 12 MultiHance intravenous contrast. Sequences included sagittal and axial T1-weighted SE, axial diff usion-weighted FS EPI ASSET, axial T2*-weighted GRE, axial T2-weighted FLAIR Propeller, and axial T2- weighted Propeller. Postcontrast axial and coronal T1-weighted SE was obtained. Apparent diffusion co efficient (ADC) maps were created. COMPARISON: CT brain 09/06/2021 FINDINGS: No abnormal restricted diffusion to suggest acute ischemic infarct. No MRI evidence of hemorrhage or extra-axial collection. No suspicious foci of susceptibility to suggest prior intraparenchymal hemorr román. Mild bilateral basal ganglia calcification. Minimal scattered foci of white matter hyperintensi ty, likely representing mild small vessel ischemic disease. No evidence of advanced or lobar predomin ant parenchymal volume loss. The basilar cisterns are patent. Flow voids are preserved. Paranasal sin uses are within normal limits. Globes and orbital contents are within normal limits. IMPRESSION: Unremarkable MR brain findings. Reviewed, dictated and finalized at location K.
== END 2023-01-23 09:47 | disposition home or self-care (01) ==
LOC: CHSIMG 09:49
PROVIDERS: PCP Family Medicine; Visit Provider Family Medicine
DX: E27.8 Other specified disorders of adrenal gland (principal); R51.9 Headache, unspecified
CPT/HCPCS: 70553; A9577

== ENCOUNTER 2023-01-28 07:00 | Outpatient (NON) | payer MEDICARE, SELFPAY | END 2023-01-28 07:01 | disposition home or self-care (01) | PROVIDERS: PCP Family Medicine; Visit Provider Internal Medicine Gastroenterology | DX: D12.5 Benign neoplasm of sigmoid colon (principal); Z80.0 Family history of malignant neoplasm of digestive organs | CPT/HCPCS: 88305 ==

== ENCOUNTER 2023-01-28 07:26 | Outpatient (CLI) | payer MEDICARE, SELFPAY | END 2023-01-28 07:27 | disposition home or self-care (01) | LOC: CHSIMG 07:28 | PROVIDERS: PCP Family Medicine; Visit Provider Family Medicine | DX: E27.8 Other specified disorders of adrenal gland (principal) | CPT/HCPCS: 99199 ==

== ENCOUNTER 2023-01-28 07:54 | Day surgery (SDC) | payer MEDICARE, SELFPAY ==
--- NOTE | 2023-01-28 08:19 | WPDANESEPPF ---
Anes - Initial Pre Proc Eval Procedure: Operation Date: 01/28/23 11:30 Proposed Procedures p Esophagogastroduodenoscopy - Tom Carias MD s Colonoscopy - Tom Carias MD Date/Time: 01/28/23 08:19 Surgeon: Tom Carias MD Pre Op Diagnosis: FA.HX.Malignant Neoplasm Digest.Organs, N&V Patient Data Age: 67 Gender: F Height: 1.63 m Weight: 54.431 kg Allergies Allergy/AdvReac Type Severity Reaction Status Date / Time No Known Allergies Allergy Verified 01/28/23 10:26 Home Medications Medication Instructions Recorded Confirmed Type estradiol 0.5 mg tablet 0.5 mg PO DAILY 11/25/22 01/28/23 History calcium carbonate 600 mg calcium 600 mg PO DAILY 12/16/22 01/28/23 History (1,500 mg) tablet (Calcium) ergocalciferol (vitamin D2) 400 400 unit PO DAILY 12/16/22 01/28/23 History unit capsule losartan 100 mg tablet 50 mg PO DAILY 12/16/22 01/28/23 History magnesium oxide 400 mg (241.3 mg 400 mg PO DAILY 12/16/22 01/28/23 History magnesium) tablet potassium chloride 20 mEq oral 30 meq PO BID 12/16/22 01/28/23 History packet omeprazole 40 mg capsule,delayed 40 mg PO DAILY #30 caps 12/29/22 01/28/23 Rx release spironolactone 25 mg tablet 50 mg PO DAILY 01/13/23 01/13/23 History Patient hx anesthesia problems: none Family hx anesthesia problems: none Results Review: All pre-operative results and documents have been reviewed as part of the pre-operative evaluation. [facility] Past Medical History Medical History (Updated 01/08/23 @ 13:29 by FLOR Wise) Abnormal gall bladder diagnostic imaging Abnormal weight loss Adrenal nodule Asthma Belching Degenerative joint disease of left hip Early satiety Family hx of colon cancer Hypertension Hypokalemia Surgical History Surgical History H/O: hysterectomy S/P total hip arthroplasty Family History Family History Mother , age 67 Carcinoma of colon Father , age 96 Heart disease Sibling Pancreatic cancer Social History Social History (Updated 01/28/23 @ 11:14 by Fish Bowden DO) Social History: The patient lives with her who is the durable power of trade mark attorney for healthcare. The patient is listed as a full code. She has 2 children. 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 She is an ex-smoker. She is a social drinker an occasionally uses marijuana. Smoking packs per day: 0.75 Smoking cigarettes per day: 15.0 Years smoked: 15 Smoking pack-years: 11.25 Smoking status: Former smoker Tobacco type: cigarettes Second hand tobacco smoke exposure: No Smoking end date: 04/15/00 Additional smoking assessment comments: DENIES ANY FORM OF TOBACCO USE Alcohol intake: current Drinks per week: 7 Alcohol use details: 1 drink/day Substance use: current Substance use type: marijuana Last use: daily Lack of Transportation: No Lack of Food: Never True Current Housing: I Have Housing Concerned About Future Housing: No Difficulty Paying Gas/Electric Bills: No Difficulty Paying for Meds: No Currently Unemployed: No Education: High School Diploma/GED Difficulty w/ Childcare or Family Care: No Living arrangements: with family Additional living arrangements comments: Occupation/Education: retired Gender identity (if verbalized by the patient): Female Sexual Orientation (if Verbalized by the Patient): Straight or Heterosexual Spiritual care concerns: No Anes - Eval Final PreProcedure Day of Procedure 01/28/23 08:19 Patient weight: normal Heart: regular rate and rhythm Lungs: clear to auscultation and normal air movement Airway: Mallampati scale class II Neurological: alert and oriented Last oral intake: >/= 8 hours ASA classification: III Emergent: no Anesthetic plan:
[2023-01-28 10:28] VITALS: BP 153/79; RESP 16; TEMP 37.2; O2SAT 100; BMI 20.2
--- NOTE | 2023-01-28 10:30 | PM.HPGS ---
History of Present Illness History of Present Illness Consent: Risks, benefits, and alternatives have been discussed and questions answered. Patient agrees to proceed with procedure. Chief complaint: FA.HX.Malignant Neoplasm Digest.Organs, N&V Narrative: Hayley Arora is a 67 year old female Presents for both colonoscopy and EGD . Patient's mother had colon cancer. Neoplasia screening colonoscopy is advised. Reports that her weight appetite and bowel movements are normal she denies any abdominal pain. She has had no bleeding. patient also has intermittent nausea vomiting. This appears to be associated with headaches. When she gets the headaches they may last for 12-18 hours. Often associated vomiting. An EGD is requested to exclude organic disease in the stomach. Review of Systems Review of Systems: Review of systems noncontributory. REPLACED BY [facility] Past Medical History Medical History (Updated 01/08/23 @ 13:29 by FLOR Wise) Abnormal gall bladder diagnostic imaging Abnormal weight loss Adrenal nodule Asthma Belching Degenerative joint disease of left hip Early satiety Family hx of colon cancer Hypertension Hypokalemia Surgical History Surgical History H/O: hysterectomy S/P total hip arthroplasty Family History Family History Mother , age 67 Carcinoma of colon Father , age 96 Heart disease Sibling Pancreatic cancer Social History Social History Social History: The patient lives with her who is the durable power of regulatory attorney for healthcare. The patient is listed as a full code. She has 2 children. 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 She is an ex-smoker. She is a social drinker an occasionally uses marijuana. Smoking packs per day: 0.75 Smoking cigarettes per day: 15.0 Years smoked: 15 Smoking pack-years: 11.25 Smoking status: Former smoker Tobacco type: cigarettes Second hand tobacco smoke exposure: No Smoking end date: 04/15/00 Additional smoking assessment comments: DENIES ANY FORM OF TOBACCO USE Alcohol intake: current Drinks per week: 1 Alcohol use details: BEER Substance use: current Substance use type: marijuana Last use: 08/20/20 Lack of Transportation: No Lack of Food: Never True Current Housing: I Have Housing Concerned About Future Housing: No Difficulty Paying Gas/Electric Bills: No Difficulty Paying for Meds: No Currently Unemployed: No Education: High School Diploma/GED Difficulty w/ Childcare or Family Care: No Living arrangements: with family Additional living arrangements comments: Occupation/Education: retired Gender identity (if verbalized by the patient): Female Sexual Orientation (if Verbalized by the Patient): Straight or Heterosexual Spiritual care concerns: No Meds Home Medications and Allergies Home Medications Medication Instructions Recorded Confirmed Type estradiol 0.5 mg tablet 0.5 mg PO DAILY 11/25/22 01/28/23 History calcium carbonate 600 mg calcium 600 mg PO DAILY 12/16/22 01/28/23 History (1,500 mg) tablet (Calcium) ergocalciferol (vitamin D2) 400 400 unit PO DAILY 12/16/22 01/28/23 History unit capsule losartan 100 mg tablet 50 mg PO DAILY 12/16/22 01/28/23 History magnesium oxide 400 mg (241.3 mg 400 mg PO DAILY 12/16/22 01/28/23 History magnesium) tablet potassium chloride 20 mEq oral 30 meq PO BID 12/16/22 01/28/23 History packet omeprazole 40 mg capsule,delayed 40 mg PO DAILY #30 caps 12/29/22 01/28/23 Rx release spironolactone 25 mg tablet 50 mg PO DAILY 01/13/23 01/13/23 History Allergies Allergy/AdvReac Type Severity Reaction Status Date / Time No Known Allergies Allergy Verified 01/28/23 10:26
[2023-01-28] MEDS: LACTATED RINGERS 1,000 ML 150 ML IV CONT (10:36)
[2023-01-28 12:41] VITALS: BP 125/77; PULSE 73; RESP 16; O2SAT 100
[2023-01-28 12:51] VITALS: BP 129/69; PULSE 64; RESP 16; O2SAT 96
[2023-01-28 13:01] VITALS: BP 125/85; PULSE 78; RESP 16; O2SAT 100
--- NOTE | 2023-01-28 13:53 | WPDANESPN ---
Anes - Prog Note Post-Op Date/Time: 01/28/23 13:53 Cardiovascular status: normal Respiratory status: normal Airway patency: baseline Mental status: baseline Post-Op hydration status: normal Vital Signs: Last Vital Signs Temp 37.2 C 01/28/23 10:28 Pulse 78 01/28/23 13:01 Resp 16 01/28/23 13:01 BP 125/85 01/28/23 13:01 Pulse Ox 100 01/28/23 13:01 O2 Del Method Room Air 01/28/23 13:01 Pain Score (VAS): 0 I/O: Intake & Output 01/27/23 01/28/23 01/28/23 23:59 07:59 15:59 Intake Total 100 Balance 100 Post-procedural complaints: none Patient Feedback: Patient satisfied with anesthetic care. Other Findings: Patient vital signs back to baseline. Patient denies nausea and vomiting. Patient's pain under control. Patient OK for discharge.
== END 2023-01-28 13:20 | disposition home or self-care (01) ==
PROVIDERS: PCP Family Medicine; Visit Provider Internal Medicine Gastroenterology
PROC: 0DJ08ZZ Inspection of Upper Intestinal Tract, Via Natural or Artificial Opening Endoscopic (ICD-10-PCS; CPT 43235; principal; 2023-01-28 11:30)
PROC: 0DJD8ZZ Inspection of Lower Intestinal Tract, Via Natural or Artificial Opening Endoscopic (ICD-10-PCS; CPT 45378; 2023-01-28 11:30)
DX: Z80.0 Family history of malignant neoplasm of digestive organs (principal); D12.5 Benign neoplasm of sigmoid colon; K57.30 Diverticulosis of large intestine without perforation or abscess without bleeding; K64.8 Other hemorrhoids; R11.2 Nausea with vomiting, unspecified
CPT/HCPCS: 45380; 43239

== ENCOUNTER 2023-01-29 08:14 | Outpatient (CLI) | payer MEDICARE, SELFPAY ==
--- NOTE | ~2023-01-29 | US_ITS ---
EXAMINATION: US abdomen limited DATE: 01/29/2023 08:41 INDICATION: Gallbladder polyp versus stone TECHNIQUE: Multiple grayscale and Doppler ultrasound images of the abdomen were obtained. COMPARISON: None available FINDINGS: The head and body of the pancreas are normal. The pancreatic tail is obscured by bowel gas. The liver is normal with normal echogenicity and echotexture. No surface nodularity. Normal hepatope fabby flow in the main portal vein. There is a 6 mm hyperechoic area of the gallbladder fundus with tin gling artifact seen with color flow Doppler. The normal common bile duct measures 2 mm. There was no sonographic Riggs sign. IMPRESSION: 1. 6 mm stone in the gallbladder fundus. Reviewed, dictated and finalized at location B.
== END 2023-01-29 08:15 | disposition home or self-care (01) ==
PROVIDERS: PCP Family Medicine; Visit Provider Nurse Practitioner
DX: R93.2 Abnormal findings on diagnostic imaging of liver and biliary tract (principal); K80.20 Calculus of gallbladder without cholecystitis without obstruction
CPT/HCPCS: 76705

== ENCOUNTER 2023-02-04 07:28 | Outpatient (CLI) | payer MEDICARE, SELFPAY ==
--- NOTE | ~2023-02-04 | MR_ITS ---
EXAMINATION: MR abdomen wo/w con INDICATION: Other specified disorders of the adrenal gland TECHNIQUE: Coronal SSFSE ARC, WATER:coronal LAVA-FLEX, Coronal 2D FIESTA FatSat, Axial SSFSE BH ARC, Axial 3D DualEcho BH, Axial SSFSE-IR, Axial DWI b=500, Axial 2D FIESTA FatSat, pre and dynamic postco ntrast Axial LAVA ARC, postcontrast Coronal In and Opposed phase LAVA FLEX COMPARISON: CT, 01/06/2023 CONTRAST: Multihance, 12 cc FINDINGS: There is a 1.6 cm mass of the left adrenal gland which demonstrates loss of signal intensit y on opposed phase imaging, consistent with an adenoma. The liver, pancreas, and right adrenal gland are normal. There is a 1.5 cm cyst of the spleen. The kidneys are unremarkable. There is a small ston e versus adenomyomatosis of the gallbladder fundus. There are no pathologically enlarged abdominal ly mph nodes. There is questionable wall thickening of nondilated small bowel in the left abdomen. A lar ge volume of colonic stool is present. IMPRESSION: 1. Left adrenal adenoma. 2. Possible wall thickening of nondilated small bowel in the left abdomen. Consider further evaluatio n with small bowel follow-through. Reviewed, dictated and finalized at location F. IMPRESSION: 1. Left adrenal adenoma. 2. Possible wall thickening of nondilated small bowel in the left abdomen. Cons ider further evaluation with small bowel follow-through.
== END 2023-02-04 07:29 | disposition home or self-care (01) ==
PROVIDERS: PCP Family Medicine; Visit Provider Family Medicine
DX: D35.02 Benign neoplasm of left adrenal gland (principal)
CPT/HCPCS: 74183; A9577

== ENCOUNTER 2023-02-06 09:17 | Outpatient (CLI) | payer MEDICARE, SELFPAY ==
[2023-02-06 10:03] LABS: Albumin Level 4.1 g/dL (3.4-5.0); Anion Gap 9 mmol/L (8-16); Blood Urea Nitrogen 14 mg/dL (7-18); Calcium 10.1 mg/dL (8.5-10.1); Carbon Dioxide 29 mmol/L (21-32); Chloride 103 mmol/L (98-108); Estimated Glomerular Filt Rate > 60; Glucose 122 mg/dL (70-99); Magnesium 1.9 mg/dL (1.8-2.4); Osmolality Calculated 293 mOsm/kg (285-295); Phosphorus 3.4 mg/dL (2.6-4.7); Potassium 4.5 mmol/L (3.5-5.1); Sodium 141 mmol/L (136-145)
== END 2023-02-06 09:18 | disposition home or self-care (01) ==
LOC: CHSLAB 09:21
PROVIDERS: PCP Family Medicine; Visit Provider Internal Medicine Nephrology
DX: E87.6 Hypokalemia (principal); E61.2 Magnesium deficiency
CPT/HCPCS: 36415; 80069; 83735

== ENCOUNTER 2023-12-22 11:21 | Outpatient (CLI) | payer MEDICARE, SELFPAY | END 2023-12-22 11:22 | disposition home or self-care (01) | PROVIDERS: PCP Family Medicine; Visit Provider Family Medicine | DX: J45.30 Mild persistent asthma, uncomplicated (principal) | CPT/HCPCS: 94060; 94726; 94729 ==

== ENCOUNTER 2024-02-22 12:56 | Outpatient (CLI) | payer MEDICARE, SELFPAY ==
--- NOTE | 2024-02-22 14:30 | NEURO_ITS ---
Impression: # Complains of numbness of right hand. Non-diabetic. # Moderate Carpal Tunnel Syndrome. # No ulnar neuropathy. # Mildly neurogenic needle/EMG exam of right APB. Nerve Conduction Studies Anti Sensory Summary Table Stim Site NR Peak (ms) P-T Amp (?V) Site1 Site2 Delta-P (ms) Dist (cm) Michael (m/s) Right Median Anti Sensory (2-3nd Digit) Wrist 6.2 33.8 Wrist 2-3nd Digit 6.2 14.0 23 Wrist 6.3 39.6 Wrist 2-3nd Digit 6.2 14.0 23 Right Radial Anti Sensory (Base 1st Digit) Wrist 2.5 19.0 Wrist Base 1st Digit 2.5 0.0 Right Ulnar Anti Sensory (5th Digit) Wrist 3.2 38.5 Wrist 5th Digit 3.2 14.0 44 Motor Summary Table Stim Site NR Onset (ms) O-P Amp (mV) Site1 Site2 Delta-0 (ms) Dist (cm) Michael (m/s) Right Median Motor (Abd Poll Brev) Wrist 6.0 3.7 Elbow Wrist 4.9 28.0 57 Elbow 10.9 4.4 Right Ulnar Motor (Abd Dig Minimi) Wrist 2.8 2.3 A Elbow Wrist 4.9 28.0 57 A Elbow 7.7 5.6 F Wave Studies NR F-Lat (ms) L-R F-Lat (ms) Right Median (Mrkrs) (Abd Poll Brev) 30.12 Right Ulnar (Mrkrs) (Abd Dig Min) 29.88 EMG Side Muscle Nerve Root Ins Act Fibs Amp Dur Recrt Comment Right 1stDorInt Ulnar C8-T1 Nml Nml Nml Nml Nml Right Ext Indicis Radial (Post Int) C7-8 Nml Nml Nml Nml Nml Right Ext Digitorum Radial (Post Int) C7-8 Nml Nml Nml Nml Nml Right BrachioRad Radial C5-6 Nml Nml Nml Nml Nml Right PronatorTeres Median C6-7 Nml Nml Nml Nml Nml Right Abd Poll Brev Median C8-T1 Nml Nml Incr >12ms +1 Right ABD Dig Min Ulnar C8-T1 Nml Nml Nml Nml Nml MTDD
== END 2024-02-22 12:57 | disposition home or self-care (01) ==
PROVIDERS: PCP Family Medicine; Visit Provider Family Medicine
DX: G56.03 Carpal tunnel syndrome, bilateral upper limbs (principal)
CPT/HCPCS: 95886; 95909

== ENCOUNTER 2024-05-29 13:54 | Outpatient (CLI) | payer MEDICARE, SELFPAY ==
--- NOTE | 2024-05-29 14:03 | ECG_ITS ---
Test Date: 2024-05-29 14:15:28 Measurements Intervals [place] Rate: 66 P: 84 VA: 151 QRS: 78 QRSD: 87 T: 67 QT: 388 QTc: 407 Interpretive Statements SINUS RHYTHM POSSIBLE LEFT ATRIAL ENLARGEMENT CANNOT R/O SEPTAL INFARCT, AGE INDETERMINATE BORDERLINE ST ABNORMALITY- ANTEROLAT/INF LEADS BASELINE ARTIFACT- I, II, III, AVR, AVL, AVF ABNORMAL ECG No previous ECG available for comparison Electronically Signed On 05-29-2024 14:18:52 PROGRAM ANALYST by Adonis Currie D.O.
--- OUTSIDE RECORDS SUMMARY | 2024-05-29 14:09 | XMS_ITS | Clinical Summary ---
Author Organization [facility] Address [facility] [place] [address] Care Team Providers Care Inventory Specialist Manager Name Role Phone Unavailable Primary Care Provider Unavailabl e Social History Tobacco Use Types Packs/Day Years Used Date Smoking Tobacco: Never Assessed Comments Unknown Sex and Gender Information Value Date Recorded Sex Assigned at Not on file Legal Sex Female 5:43 PM RN PRIVATE DUTY Gender Identity Not on file Sexual Orientation Not on file Plan of Treatment Health Maintenance Due Date Last Done Comments Colorectal Cancer Screening Colonoscopy (10 Years) 1955 Hepatitis C 1973 DTaP, Tdap and Td Vaccines ( 1 - Tdap) 1974 Mammogram Screening 1995 Zoster Vaccines (1 of 2) 2005 Dexa Scan (General) 2020 Pneumococcal Vaccine: 65+ Ye ars (1 of 1 - PCV) 2020 COVID-19 Vaccine (2023-2 5 season) 2023 Influenza Adult (#1) 2024 RSV Immunization or 60+ Years (1 - 1-dose 75+ series) 2030 Meningococcal B Vaccine Aged Out No l onger eligible based on patient's age to complete this topic Meningococcal Vaccine Aged Out No jair marco antonio eligible based on patient's age to complete this topic RSV Immunizations Under 20 Months Aged Out No longer eligible based on patient's age to complete this topic
[2024-05-29 14:22] LABS: Anion Gap 10 mmol/L (4-12); Blood Urea Nitrogen 16 mg/dL (7-18); Calcium 10.1 mg/dL (8.5-10.1); Carbon Dioxide 30 mmol/L (21-32); Chloride 100 mmol/L (98-108); Estimated Glomerular Filt Rate > 60; Glucose 91 mg/dL (70-99); Osmolality Calculated 291 mOsm/kg (285-295); Potassium 4.3 mmol/L (3.5-5.1); Sodium 140 mmol/L (136-145)
== END 2024-05-29 13:55 | disposition home or self-care (01) ==
LOC: CHSLAB 13:56
PROVIDERS: PCP Family Medicine; Visit Provider Anesthesiology
DX: I10 Essential (primary) hypertension (principal); R94.31 Abnormal electrocardiogram [ECG] [EKG]
CPT/HCPCS: 36415; 80048; 93005

== ENCOUNTER 2024-06-02 02:05 | Day surgery (SDC) | payer MEDICARE, SELFPAY ==
--- NOTE | 2024-05-29 11:29 | PC.NURSE ---
Report to the Outpatient Waiting Room, entrance under the green pavilion located off [facility], at time __6 AM on date ___06/02/24____. Planned Procedure Time: _7:30 AM .? Time changes happen often and if your time is changed the preop area will call you the afternoon before. - You and your visitor will be asked to self-screen and do not enter if you have any COVID symptoms. Please call surgeon if you need to reschedule. - A mask is optional within the hospital at this time. Patients may have clear liquids (water, carbonated beverages, clear teas, apple juice) until 3 hours prior to surgery(4:30 AM) with a maximum of 20 ounces. - No food from midnight until time of surgery and no smoking, or chewing tobacco (or any form of nicotine). No chewing gum, candy or mints. - Take only the following medications with a SIP of water on the morning of surgery: ____DIVALPROEX____INHALER IF NEEDED DO NOT STOP ANY OF YOUR OTHER PRESCRIPTION MEDICATIONS PRIOR TO SURGERY EXCEPT THE FOLLOWING Hold all vitamins and supplements for 3 days per anesthesiologist.LAST DOSE 05/29/24 Please no make-up, nail greenlandic, hairspray, perfume, deodorant, or body powder the day of surgery.? No jewelry (including any body piercings) or valuables the day of surgery, leave them at home.? Please take a shower or bath the night before, or the morning of, surgery with an antibacterial soap.? Wear comfortable, loose fitting clothing.? Children are encouraged to wear pajamas. - Jewelry must be removed prior to entering the operating room.? Rings and piercings that are not removed may be cut off. - The hospital will not accept responsibility for valuables.? - Please leave all valuables, including medications, at home the day of surgery. If you are going home after surgery, a licensed motor vehicle escort driver must drive you home.? - NO public transportation without another adult if you receive anesthesia. - We recommend that an adult stay with you for 24 hours following discharge. - We also recommend that you do not drive, make important decision, drink alcoholic beverages, or take any drugs that were not prescribed by your health care provider for at least 24 hours after your discharge time. Follow any additional instructions given to you from your surgeon. Telephone instructions given to __PATIENT and asked if any additional questions and then verbalized understanding. Patient advised to call surgeon office or pre surgery nurse liaison [phone] if any additional questions.
[2024-05-29 11:43] VITALS: BMI 20.6
--- OUTSIDE RECORDS SUMMARY | 2024-06-02 02:08 | XMS_ITS | Clinical Summary ---
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
[2024-06-02 07:01] VITALS: BP 131/88; PULSE 71; RESP 18; TEMP 36.3; O2SAT 100
--- NOTE | 2024-06-02 07:13 | WPDHPUPDATE1 ---
History and Physical Update Update Date/Time: 06/02/24 07:13 History and Physical has been reviewed, including an updated exam of the patient. There are NO changes in the patient's condition. Risks, benefits, and alternatives have been discussed and questions answered. Patient agrees to proceed with procedure.
[2024-06-02] MEDS: CELECOXIB 200 MG CAPSULE PO (07:35)
[2024-06-02] MEDS: ACETAMINOPHEN 500 MG TABLET 1000 MG PO (07:35)
[2024-06-02] MEDS: LACTATED RINGERS 1,000 ML 30 ML IV CONT (07:40)
--- NOTE | 2024-06-02 08:16 | WPDANESEPPF ---
Anes - Initial Pre Proc Eval Procedure: Operation Date: 06/02/24 09:00 Proposed Procedures p Right Carpal Tunnel Release - Marcello Ellis MD Date/Time: 06/02/24 08:16 Surgeon: Marcello Ellis MD Pre Op Diagnosis: right carpal tunnel syndrome Patient Data Age: 69 Gender: F Height: 1.63 m Weight: 57.1 kg Last Vital Signs Temp 36.3 C L 06/02/24 07:01 Pulse 71 06/02/24 07:01 Resp 18 06/02/24 07:01 BP 131/88 06/02/24 07:01 Pulse Ox 100 06/02/24 07:01 O2 Del Method Room Air 06/02/24 07:01 Allergies Allergy/AdvReac Type Severity Reaction Status Date / Time No Known Allergies Allergy Verified 05/29/24 11:25 Home Medications ?Medication ?Instructions ?Recorded ?Confirmed ?Type estradiol 0.5 mg tablet 0.5 mg PO DAILY 11/25/22 05/29/24 History calcium carbonate (Calcium 600) 600 mg PO DAILY 12/16/22 05/29/24 History ergocalciferol (vitamin D2) 400 400 unit PO DAILY 12/16/22 05/29/24 History unit capsule losartan 100 mg tablet 50 mg PO DAILY 12/16/22 05/29/24 History magnesium oxide 400 mg (241.3 mg 400 mg PO DAILY 12/16/22 05/29/24 History magnesium) tablet potassium chloride 20 mEq oral 30 meq PO BID 12/16/22 05/29/24 History packet spironolactone 25 mg tablet 50 mg PO DAILY 01/13/23 05/29/24 History omeprazole 40 mg capsule,delayed See Rx Instructions .Route 03/29/23 05/29/24 Rx release .COMPLEX #90 caps chlorhexidine gluconate 4 % 1 applic topical ONCE #237 mL 05/25/24 05/29/24 Rx topical liquid (Hibiclens) divalproex 250 mg tablet,delayed 250 mg PO Q12H 05/25/24 05/29/24 History release albuterol sulfate 90 mcg/actuation 1 puff inhalation PRN SHORTNESS OF 05/29/24 05/29/24 History aerosol inhaler BREATH sumatriptan succinate 100 mg tablet 100 mg PO PRN MIGRAINES 05/29/24 05/29/24 History hydrocodone 5 mg-acetaminophen 325 1 tablet PO Q12H PRN pain #20 tabs 06/02/24 Rx mg tablet Patient hx anesthesia problems: none Family hx anesthesia problems: none Results Review: All pre-operative results and documents have been reviewed as part of the pre-operative evaluation. [facility] Past Medical History Medical History Carpal tunnel syndrome of right wrist CTS (carpal tunnel syndrome) Cholelithiasis Adrenal nodule Abnormal gall bladder diagnostic imaging Early satiety Abnormal weight loss Family hx of colon cancer Belching Asthma Hypokalemia Hypertension Degenerative joint disease of left hip Surgical History Surgical History History of hip replacement H/O: hysterectomy Family History Family History Mother , age 67 Carcinoma of colon Father , age 96 Heart disease Sibling Pancreatic cancer Social History Social History Social History: The patient lives with her who is the durable power of criminal defense attorney for healthcare. The patient is listed as a full code. She has 2 children. 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 She is an ex-smoker. She is a social drinker an occasionally uses marijuana. Smoking packs per day: 0.75 Smoking cigarettes per day: 15.0 Years smoked: 15 Smoking pack-years: 11.25 Smoking status: Former smoker Tobacco type: cigarettes Second hand tobacco smoke exposure: No Smoking end date: 04/15/00 Additional smoking assessment comments: DENIES ANY FORM OF TOBACCO USE Alcohol intake: current Drinks per week: 7 Alcohol use details: 1 drink/day Substance use: current Substance use type: marijuana Last use: daily Lack of Transportation: No Lack of Food: Never True Current Housing: I Have Housing Concerned About Future Housing: No Difficulty Paying Gas/Electric Bills: No Difficulty Paying for Meds: No Currently Unemployed: No Education: High School Diploma/GED Difficulty w/ Childcare or Family Care: No Living arrangements: with family Additional living arrangements comments: Occupation/Education: retired Gender identity (if verbalized by the patient): Female Sexual Orientation (if Verbalized by the Patient): Straight or Heterosexual Spiritual care concerns: No Anes - Eval Final PreProcedure Day of Procedure 06/02/24 08:16 Patient weight: normal Heart: regular rate and rhythm Lungs: clear to auscultation Airway: Mallampati scale class II Neurological: alert and oriented Last oral intake: >/= 8 hours ASA classification: III Emergent: no Anesthetic plan: proceed Anesthesia type and monitoring: general GIVS and standard monitoring Results Review: All pre-operative results and documents have been reviewed as part of the pre-operative evaluation. Informed Consent: The patient's anesthetic plan and its attendant risks and benefits were discussed with the patient/family/POA. Questions were solicited and answers provided to the satisfaction of the patient/family/POA.
[2024-06-02] MEDS: ceFAZolin 2 GM/D5W 50 ML 2 GM/50 ML BAG IVPB (09:37)
[2024-06-02] MEDS: BUPivacaine HCL 0.5% 10 ML AMP 20 ML INFILTRATE (10:01)
[2024-06-02 10:22] VITALS: BP 136/86; PULSE 61; RESP 14; O2SAT 99
[2024-06-02 10:50] VITALS: BP 144/84; PULSE 62; RESP 16
--- NOTE | 2024-06-02 11:58 | W.PM.PROC2 ---
Procedure Note - Detailed Date of Procedure 06/02/24 Pre-op Diagnosis right carpal tunnel syndrome Post-op Diagnosis Same Procedure Performed RIGHT CTR Surgeon Marcello Ellis MD Anesthesia General Description of Procedure THE RIGHT UPPER EXTREMITY WAS PREPPED AND DRAPED IN THE STERILE FASHION. THE CARPAL TUNNEL WAS MARKED FROM THE FLEXED RING FINGER. THE TOURNIQUET WAS INFLATED. THE INCISION WAS MADE AT THE MID PALM DOWN THROUGH THE SUBCUTANEOUS TISSUES. THE PALMAR FASCIA WAS IDENTIFIED. AN INCISION WAS MADE THROUGH THE PALMAR FASCIA UNTIL THE CARPAL TUNNEL WAS ENTERED. A MOSQUITO HEMOSTAT WAS USED TO PROTECT THE MEDIAN NERVE WHILE THE INCISION TO THE PALMAR FASCIA WAS COMPLETE PROXIMALLY AND DISTALLY TO THE CARDINAL LINE. NEXT, THE TRANSVERSE CARPAL LIGAMENT WAS IDENTIFIED. A FREER ELEVATOR WAS USED TO SEPARATE THE NERVE FROM THE LIGAMENT. A METZENBAUM SCISSORS WAS THEN USED TO INCISE THE TRANSVERSE CARPAL LIGAMENT UNTIL THERE WAS A COMPLETE RELEASE OF THE CARPAL TUNNEL. THE MEDIAN NERVE WAS INTACT. THE TOURNIQUET WAS DEFLATED. THE BLEEDERS WERE CAUTERIZED. THE WOUND WAS WASHED. THE SKIN WAS APPROXIMATED WITH 4-0 NYLON SUTURE. STERILE DRESSING WAS APPLIED. PATIENT WAS EXTUBATED AND SENT TO THE RECOVERY ROOM. Estimated Blood Loss 5 Complications No immediate complications Condition Stable Disposition PACU
== END 2024-06-02 11:12 | disposition home or self-care (01) ==
PROVIDERS: PCP Family Medicine; Visit Provider Orthopaedic Surgery
PROC: (CPT 64721; principal; 2024-06-02 09:00)
DX: G56.01 Carpal tunnel syndrome, right upper limb (principal)
CPT/HCPCS: 64721; A9270; J0690; J1100; J2003; J2405; J2704; J3010; J7120

== ENCOUNTER 2024-08-01 09:44 | Outpatient (CLI) | payer MEDICARE, SELFPAY ==
--- NOTE | ~2024-08-01 | XR_ITS ---
Right wrist Technique: PA, oblique, lateral, and ulnar deviation views were obtained. Clinical History: Anterior carpal pain Findings: No acute fracture or dislocation is seen. Osseous alignment is anatomic. Joint spaces are p reserved. Soft tissues are unremarkable. Impression: Unremarkable right wrist radiographs. Reviewed, dictated and finalized at location . Impression: Unremarkable right wrist radiographs.
--- NOTE | ~2024-08-01 | XR_ITS ---
Right Hand Technique: PA, oblique, and lateral views were obtained. Clinical History: Postoperative pain Findings: No acute fracture or dislocation is seen. Osseous alignment is anatomic. There is mild dege nerative change of the second MCP joint and third DIP joint.. Soft tissues are unremarkable. Impression: Mild degenerative change, as above. Reviewed, dictated and finalized at location M. Impression: Mild degenerative change, as above.
[2024-08-01 10:26] LABS: Basophils Absolute Auto 0.05 K/mm3 (0.00-0.10); Basophils Percent Auto 0.9 % (0.0-1.0); Eosinophils Absolute Auto 0.15 K/mm3 (0.02-0.50); Eosinophils Percent Auto 2.7 % (1.0-6.0); Hematocrit 38.8 % (35.0-42.0); Hemoglobin 12.5 g/dL (11.7-13.8); Immature Granulocyte Absolute 0.02 K/mm3 (0.00-0.00); Immature Granulocyte Percent A 0.4 % (0.0-0.0); Lymphocytes Absolute Auto 1.92 K/mm3 (1.10-4.50); Lymphocytes Percent Auto 34.8 % (18.0-42.0); Mean Corpuscular HGB Conc 32.2 g/dL (32-36); Mean Corpuscular Hemoglobin 31.2 pg (27.0-31.0); Mean Corpuscular Volume 96.8 fL (78.0-102.0); Monocytes Absolute Auto 0.49 K/mm3 (0.10-0.90); Monocytes Percent Auto 8.9 % (2.0-11.0); Neutrophils Absolute Auto 2.89 K/mm3 (1.70-7.20); Neutrophils Percent Auto 52.3 % (50.0-70.0); Platelet Count Result 155 K/mm3 (150-420); Red Blood Count 4.01 M/mm3 (4.20-5.40); Red Cell Distribution Width 13.8 % (11.6-14.4); White Blood Count 5.5 K/mm3 (4.8-10.8)
--- OUTSIDE RECORDS SUMMARY | 2024-08-01 10:28 | XMS_ITS | Clinical Summary ---
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
[2024-08-01 11:31] LABS: Erythrocyte Sedimentation Rate 4 mm/hr (0-20)
== END 2024-08-01 09:45 | disposition home or self-care (01) ==
LOC: CHSLAB 09:46
PROVIDERS: PCP Family Medicine; Visit Provider Family Medicine
DX: M25.531 Pain in right wrist (principal)
CPT/HCPCS: 36415; 73110; 73130; 85025; 85652

== ENCOUNTER 2024-08-31 13:58 | Outpatient (CLI) | payer MEDICARE, SELFPAY ==
--- NOTE | ~2024-08-31 | MM_ITS ---
EXAMINATION: MM screening lazaro BI w neeru HISTORY: Screening TECHNIQUE: Craniocaudal and mediolateral oblique 3-D tomosynthesis images were obtained and synthetic 2-D images were generated. CAD analysis was submitted and interpreted. COMPARISON: Comparison to multiple prior studies sequentially, with oldest reviewed study dated 02/17. BREAST PARENCHYMAL COMPOSITION: Not dense: There are scattered areas of fibroglandular density. FINDINGS: There is no evidence of suspicious mass, calcification, or architectural distortion to sugg est malignancy in either breast. There has been no suspicious interval change. IMPRESSION: 1. No mammographic evidence of malignancy. 2. Recommend routine screening mammography in one year. BI-RADS Category 1: Negative Reviewed, dictated and finalized at location A.
--- OUTSIDE RECORDS SUMMARY | 2024-08-31 14:02 | XMS_ITS | Clinical Summary ---
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
== END 2024-08-31 13:59 | disposition home or self-care (01) ==
LOC: CHSIMG 13:59
PROVIDERS: PCP Family Medicine; Visit Provider Family Medicine
DX: Z12.31 Encounter for screening mammogram for malignant neoplasm of breast (principal)
CPT/HCPCS: 77063; 77067

== ENCOUNTER 2025-01-09 07:10 | Outpatient (CLI) | payer MEDICARE, SELFPAY ==
[2025-01-09 07:27] LABS: Hematocrit 42.1 % (35.0-42.0); Hemoglobin 13.9 g/dL (11.7-13.8); Mean Corpuscular HGB Conc 33.0 g/dL (32-36); Mean Corpuscular Hemoglobin 31.4 pg (27.0-31.0); Mean Corpuscular Volume 95.0 fL (78.0-102.0); Platelet Count Result 157 K/mm3 (150-420); Red Blood Count 4.43 M/mm3 (4.20-5.40); White Blood Count 5.6 K/mm3 (4.8-10.8)
[2025-01-09 07:28] LABS: Add Urine Microscopic? NO; Appearance Urine Clear (Clear); Glucose Urine UA Negative (Negative); Leukocyte Esterase Ur Negative (Negative); Nitrate Urine Negative (Negative); Specific Grav Ur 1.015 (1.010-1.020)
[2025-01-09 07:49] LABS: Alanine Aminotransferase 18 U/L (6-35); Albumin Level 4.6 g/dL (3.5-5.1); Alkaline Phosphatase 51 U/L (38-126); Anion Gap 7 mmol/L (4-12); Aspartate Amino Transferase 27 U/L (14-36); Bilirubin,Total 0.6 mg/dL (0.2-1.3); Blood Urea Nitrogen 15 mg/dL (7-17); Calcium 10.4 mg/dL (8.4-10.2); Carbon Dioxide 31 mmol/L (22-30); Chloride 100 mmol/L (98-107); Cholesterol 202 mg/dL (0-200); Estimated Glomerular Filt Rate > 60; Glucose 96 mg/dL (65-110); HDL Direct 83 mg/dL; Osmolality Calculated 286 mOsm/kg (285-295); Potassium 4.6 mmol/L (3.4-5.0); Sodium 138 mmol/L (137-145); Total Protein 7.6 g/dL (6.3-8.2); Triglycerides 66 mg/dL (<150)
[2025-01-09 07:52] LABS: MALB Creatinine Ratio 10.1 mg/g (0-30)
[2025-01-09 08:19] LABS: Thyroid Stimulating Hormone 1.620 uIU/mL (0.465-4.680)
== END 2025-01-09 07:11 ==
LOC: CHSLAB 07:11
PROVIDERS: PCP Family Medicine; Visit Provider Family Medicine
DX: I10 Essential (primary) hypertension (principal)
CPT/HCPCS: 36415; 80053; 80061; 81003; 82043; 84443; 85027

== ENCOUNTER 2025-04-17 07:29 | Outpatient (CLI) | payer MEDICARE, SELFPAY ==
--- NOTE | ~2025-04-17 | US_ITS ---
US abdomen complete EXAMINATION: US Abdomen Complete INDICATION: Generalized abdominal pain PROCEDURE: Realtime High Resolution abdomen ultrasound. COMPARISON: Ultrasound dated 01/29/2023 FINDINGS: There is a nonmobile echogenic focus measuring 1.3 cm with gallbladder wall thickening. Common bile duct measures 7 mm. Liver echotexture within normal limits without focal mass. Pancreas within normal limits. Pancreatic tail is obscured by bowel gas. There is a splenic cyst measuring 1.3 cm. There are a few calcified granulomas of the spleen.. Renal echotexture is within normal limits bilaterally without hydronephrosis, contour deforming mass or renal stone. Right kidney measures 9.7 cm. Left kidney measures 10.7 cm. Visualized aspects of the aorta and IVC are within normal limits. Portal vein is patent. No sonographic Riggs's sign indicated by the technologist. IMPRESSION: 1: Echogenic 1.3 cm intraluminal gallbladder mass which is nonmobile, most likely a polyp. There is gallbladder wall thickening. Borderline sized common bile duct measuring 7 mm. Cannot exclude acalculous cholecystitis. Consider correlation with MRCP examination. Reviewed, dictated and finalized at location O. GEMENT SPECIALIST IMPRESSION: 1: Echogenic 1.3 cm intraluminal gallbladder mass which is nonmobile, most like ly a polyp. There is gallbladder wall thickening. Borderline sized common bile duct measuring 7 mm. Cannot exclude acalculous cholecystitis. Consider correlat ion with MRCP examination.
== END 2025-04-17 07:30 | disposition home or self-care (01) ==
LOC: CHSIMG 07:31
PROVIDERS: PCP Family Medicine; Visit Provider Family Medicine
DX: R10.84 Generalized abdominal pain (principal); K82.9 Disease of gallbladder, unspecified
CPT/HCPCS: 76700